=== PATIENT | male | born 1995 | race Caucasian/White ===

== ENCOUNTER 2021-01-04 12:23 | Emergency (ER) | payer MEDICAID ==
--- NOTE | 2021-01-04 12:55 | ED Physician Documentation ---
History of Present Illness - Stated complaint Stated Complaint: SEIZURES, MEDS - Chief complaint Chief Complaint: General - Additonal information Additional information: 25-year-old male presents to the emergency department requesting help with alcohol withdrawal. He has a very heavy history of alcoholism and has been trying to taper back the amount of alcohol he drinks. Historically he has drank more than 1/5 of alcohol daily though the last few weeks he has been tapering back. He began to have shakes and withdrawals this morning and was concerned that he may have a seizure therefore he did drink beer. His mother is in attendance with him and they have been trying to get seizure medications to help him with withdrawal but [place]. [place] for pancreatitis and previously lived in [place]. He reports that he is a new resident of [facility]. Patient does state to this provider that he is not interested in alcohol detox at this time. Review of Systems Constitutional: reports: Myalgias. denies: Fever, Chills Eyes: reports: Reviewed and negative Ears: reports: Reviewed and negative Nose: reports: Reviewed and negative Throat: reports: Reviewed and negative Cardiac: reports: Reviewed and negative Respiratory: reports: Reviewed and negative GI: reports: Abdominal Pain, Nausea, Vomiting. denies: Constipation, Diarrhea, Hematemesis : reports: Reviewed and negative Skin: denies: Rash, Lesions Musculoskeletal: reports: Reviewed and negative Neurologic: reports: Seizure, Other (Tremor and withdrawal) Psychiatric: reports: Anxiety, Other (Alcohol abuse.) PD PAST MEDICAL HISTORY - Present Medications Home Medications: Ambulatory Orders Medication Instructions Recorded Confirmed chlordiazePOXIDE [Librium] 25 mg PO Q6H #20 01/04/21 - Allergies Allergies/Adverse Reactions: Allergies Allergy/AdvReac Type Severity Reaction Status Date / Time No Known Drug Allergies Allergy Verified 01/04/21 12:31 PD ED PE EXPANDED - General General: Alert, No acute distress, Other (smells heavily of etoh) - Neck Neck: Supple w/out meningeal sx, No tenderness - Cardiac Cardiac: Tachy, Radial strong equal, Pedal strong equal, Cap refill < 2 sec. No: Murmur Present - Respiratory Respiratory: Clear to ausultation alana. No: Distress, Labored - Abdomen Abdomen: Normal Bowel sounds. No: Tender to palpation - Extremities Extremities: Normal. No: Deformity - Neuro Neuro: Alert and Oriented X 3, CNII-XII intact - GCS Eye Opening: Spontaneous Motor: Obeys Commands Verbal: Oriented Total: 15 - Psych Psych: Intoxicated / AOB, Anxious Results - Vitals Vitals: Vital Signs - 24 hr 01/04/21 12:31 Temperature 36.9 C Heart Rate 99 Respiratory 18 Rate Blood Pressure 173/103 H O2 Saturation 96 Oxygen O2 Source Room air - Labs Labs: Laboratory Tests 01/04/21 01/04/21 01/04/21 13:00 13:00 13:00 WBC 4.6 L RBC 5.09 Hgb 16.7 Hct 48.3 MCV 94.9 H MCH 32.8 H MCHC 34.6 RDW 13.2 Plt Count 149 MPV 9.4 Neut # (Auto) 2.4 Lymph # (Auto) 1.3 L [place] # (Auto) 0.8 Eos # (Auto) 0.0 Baso # (Auto) 0.0 Absolute Nucleated RBC 0.00 Nucleated RBC % 0.0 Sodium 139 Potassium 3.4 L Chloride 93 L Carbon Dioxide 30 Anion Gap 16.0 H BUN 9 Creatinine 0.8 Estimated GFR (MDRD) 117 Glucose 94 Calcium 9.3 Total Bilirubin 1.4 H AST 180 H ALT 79 H Alkaline Phosphatase 71 Total Protein 9.3 H Albumin 5.4 Globulin 3.9 Albumin/Globulin Ratio 1.4 Lipase 58 H TSH 2.26 Urine Color Urine Clarity Urine pH Ur Specific [place] Urine Protein Urine Glucose (UA) Urine Ketones Urine Occult Blood Urine Nitrite Urine Bilirubin Urine Urobilinogen Ur Leukocyte Esterase Urine RBC Urine WBC Ur Squamous Epith Cells Urine Bacteria Urine Mucus Ur Microscopic Review Urine Culture Comments Salicylates < 6.0 Urine Opiates Screen Ur Oxycodone Screen Urine Methadone Screen Ur Propoxyphene Screen Acetaminophen < 10 L Ur Barbiturates Screen Ur Tricyclics Screen Ur Phencyclidine Scrn Ur Amphetamine Screen U Methamphetamines Scrn U Benzodiazepines Scrn Urine Cocaine Screen U Cannabinoids Screen Ethyl Alcohol 339.7 01/04/21 13:33 WBC RBC Hgb Hct MCV MCH MCHC RDW Plt Count MPV Neut # (Auto) Lymph # (Auto) [place] # (Auto) Eos # (Auto) Baso # (Auto) Absolute Nucleated RBC Nucleated RBC % Sodium Potassium Chloride Carbon Dioxide Anion Gap BUN Creatinine Estimated GFR (MDRD) Glucose Calcium Total Bilirubin AST ALT Alkaline Phosphatase Total Protein Albumin Globulin Albumin/Globulin Ratio Lipase TSH Urine Color YELLOW Urine Clarity CLEAR Urine pH 7.0 Ur Specific [place] 1.010 Urine Protein 100 H Urine Glucose (UA) NEGATIVE Urine Ketones NEGATIVE Urine Occult Blood TRACE-INTA Urine Nitrite NEGATIVE Urine Bilirubin NEGATIVE Urine Urobilinogen 0.2 (NORMAL) Ur Leukocyte Esterase NEGATIVE Urine RBC 0-5 Urine WBC 0-3 Ur Squamous Epith Cells RARE Squamous Urine Bacteria None Seen Urine Mucus Few Strands Ur Microscopic Review INDICATED Urine Culture Comments NOT INDICATED Salicylates Urine Opiates Screen NEGATIVE Ur Oxycodone Screen NEGATIVE Urine Methadone Screen NEGATIVE Ur Propoxyphene Screen NEGATIVE Acetaminophen Ur Barbiturates Screen NEGATIVE Ur Tricyclics Screen NEGATIVE Ur Phencyclidine Scrn NEGATIVE Ur Amphetamine Screen NEGATIVE U Methamphetamines Scrn NEGATIVE U Benzodiazepines Scrn POSITIVE H Urine Cocaine Screen NEGATIVE U Cannabinoids Screen POSITIVE H Ethyl Alcohol PD MEDICAL DECISION MAKING - ED course Complexity details: reviewed results, re-evaluated patient, d/w patient ED course: 25-year-old male presents the emergency department requesting medication to help prevent alcohol withdrawal and seizures. Does have a long has history of alcoholism often drinking up to 700 mL of liquor daily. Over the last few weeks he has begun to taper his use back and this morning began having tremors and withdrawal symptoms. He was afraid that he may have a seizure therefore he did drink a beer. He comes to this emergency department requesting Librium. He does smell heavily of alcohol and does have a positive blood alcohol of 336 here on arrival. He does report that about 1 month ago he was briefly hospitalized at the [facility] for acute pancreatitis. Screening labs do show transaminitis consistent with alcohol abuse. Lipase is not clinically elevated. No abdominal pain was elicited. This gentleman was seen by social work and he declines to go to a detox facility. I discussed this case at length with his grandmother. I will write a short prescription for Librium which is to be in her possession. Appropriate use of this medication was discussed. Patient is to avoid use of alcohol and Librium at the same time and he is free to return to the emergency department at any time should he wish to enter a detox facility. Departure - Departure Disposition: 01 Home, Self Care Clinical Impression: Alcohol abuse with withdrawal Condition: Stable Record reviewed to determine appropriate education?: Yes Instructions: ED Seizure Alcohol Withdrawal Prescriptions: chlordiazePOXIDE [Librium] 25 mg PO Q6H #20 Comments: Sam you are seen in the emergency department today for alcohol with drawl. You were offered the opportunity to go to inpatient detox but you declined. It is very important that you do not consume alcohol while taking Librium. Therefore I would like the Librium to be in possession of your mother or grandmother at all times. You may take it if you have not had a drink for 12 or more hours and you begin to have shakes or withdrawal symptoms. In the long-term most successful alcohol cessation stops with the help of therapy, Alcoholics Anonymous as well as detox. If at any point you feel that you would like to enter a detox facility you may return to the emergency department. I do wish you luck in your journey.
[2021-01-04 13:06] LABS: BASOPHILS % (AUTO) 0.9 %; EOSINOPHILS % (AUTO) 0.2 %; HCT - HEMATOCRIT 48.3 % (42.0-52.0); HGB - HEMOGLOBIN 16.7 g/dL (14.0-18.0); LYMPHOCYTES # (AUTO) 1.3 10^3/uL (1.5-3.5); LYMPHOCYTES % (AUTO) 28.7 %; MEAN CORPUSCULAR HEMOGLOBIN 32.8 pg (27.0-31.0); MEAN CORPUSCULAR HGB CONC 34.6 g/dL (32.0-36.0); MEAN CORPUSCULAR VOLUME 94.9 fL (80.0-94.0); MEAN PLATELET VOLUME 9.4 fL (7.4-11.4); MONOCYTES # (AUTO) 0.8 10^3/uL (0.0-1.0); NEUTROPHILS # (AUTO) 2.4 10^3/uL (1.5-6.6); PLT - PLATELET COUNT 149 10^3/uL (130-450); RED BLOOD COUNT 5.09 10^6/uL (4.70-6.10); RED CELL DISTRIBUTION WIDTH 13.2 % (12.0-15.0); WHITE BLOOD COUNT 4.6 x10^3/uL (4.8-10.8)
[2021-01-04 13:24] LABS: ACETAMINOPHEN < 10 ug/mL (10-30); ALBUMIN 5.4 g/dL (3.2-5.5); ALBUMIN/GLOBULIN RATIO 1.4 (1.0-2.2); ALKALINE PHOSPHATASE 71 IU/L (42-121); ALT ALANINE AMINOTRANSFERASE 79 IU/L (10-60); AST ASPARTATE AMINOTRANSFERASE 180 IU/L (10-42); BILIRUBIN,TOTAL 1.4 mg/dL (0.2-1.0); BUN - BLOOD UREA NITROGEN 9 mg/dL (6-20); CALCIUM 9.3 mg/dL (8.5-10.3); CARBON DIOXIDE - CO2 30 mmol/L (21-32); CHLORIDE 93 mmol/L (101-111); CREATININE 0.8 mg/dL (0.6-1.2); ETOH - ETHANOL 339.7 mg/dL; GFR - MDRD 117 (>89); GLUCOSE 94 mg/dL (70-100); LIPASE 58 U/L (22-51); POTASSIUM 3.4 mmol/L (3.5-5.0); SALICYLATE < 6.0 mg/dL; SODIUM 139 mmol/L (135-145); TOTAL PROTEIN 9.3 g/dL (6.7-8.2)
[2021-01-04 13:37] LABS: MUDS CUTOFF CONCENTRATIONS CUTOFF CONC BELOW:
[2021-01-04 13:42] LABS: BILIRUBIN,URINE NEGATIVE (NEGATIVE); GLUCOSE, URINE (UA) NEGATIVE (NEGATIVE); KETONES,URINE (UA) NEGATIVE (NEGATIVE); LEUKOCYTE ESTERASE, URINE NEGATIVE (NEGATIVE); NITRITE,URINE NEGATIVE (NEGATIVE); OCCULT BLOOD,URINE TRACE-INTA (NEGATIVE); PROTEIN,URINE 100 mg/dL (NEGATIVE); UROBILINOGEN,URINE 0.2 (NORMAL) E.U./dL (NORMAL)
[2021-01-04 13:43] LABS: CLARITY,URINE CLEAR (CLEAR)
[2021-01-04 13:52] LABS: AMPHETAMINE SCREEN,URINE NEGATIVE (NEGATIVE); BARBITURATE SCREEN,UR NEGATIVE (NEGATIVE); BENZODIAZEPINES SCREEN, URINE POSITIVE (NEGATIVE); COCAINE SCREEN URINE NEGATIVE (NEGATIVE); METHADONE SCREEN, URINE NEGATIVE (NEGATIVE); METHAMPHETAMINES SCREEN, URINE NEGATIVE (NEGATIVE); OPIATE SCREEN, URINE NEGATIVE (NEGATIVE); OXYCODONE SCREEN, URINE NEGATIVE (NEGATIVE); PROPOXYPHENE SCREEN, URINE NEGATIVE (NEGATIVE); THC CANNABINOID SCREEN, URINE POSITIVE (NEGATIVE); TRICYCLIC ANTIDEPRESSANT,URINE NEGATIVE (NEGATIVE)
[2021-01-04 13:53] LABS: BACTERIA,URINE None Seen /HPF (None Seen); MUCUS,URINE Few Strands; RBC,URINE 0-5 /HPF (0-5); SQUAMOUS EPITHELIAL CELL,UR RARE Squamous (<= Few); WBC,URINE 0-3 /HPF (0-3)
[2021-01-04 15:00] VITALS: BP 174/98
== END 2021-01-04 15:00 | disposition home or self-care (01) ==
LOC: ED 12:23
DX: F10.239 Alcohol dependence with withdrawal, unspecified (principal); Y90.8 Blood alcohol level of 240 mg/100 ml or more
CPT/HCPCS: 36415; 80053; 80306; 80307; 80320; 80329; 81001; 81003; 83690; 84443; 85025; 87086; 99283; 99284

== ENCOUNTER 2021-06-16 19:13 | Outpatient (CLI) | payer MEDICAID | END 2021-06-16 19:14 | disposition critical access hospital (66) | LOC: EMS 19:13 | DX: R56.9 Unspecified convulsions (principal) | CPT/HCPCS: A0425; A0427; A0999 ==

== ENCOUNTER 2021-06-16 19:23 | Emergency (ER) | payer MEDICAID ==
[2021-06-16] MEDS ORDERED: THIAMINE 100 MG TABLET PO STA (19:45)
[2021-06-16] MEDS ORDERED: chlordiazePOXIDE 25 MG CAPSULE PO STA ×2 (19:45→21:42)
--- NOTE | 2021-06-16 19:58 | ED Physician Documentation ---
History of Present Illness - Stated complaint Stated Complaint: SZ - Chief complaint Chief Complaint: Neuro - History obtained from History obtained from: Patient, EMS - Additonal information Additional information: 25yM with pmh chronic etoh abuse with prior hospitalization for pancreatitis, as well as 3 etoh withdrawal seizures in the past, otherwise without medical problems, p/w seizure witnessed by girlfriend Rajiv occurring just WATCH [employer], lasting a couple minutes. patient bit tongue. no urinary/fecal incontinence. patient reports confusion after and now is \AOX3. fingerstick 89. reports he has been trying to taper down on his alcohol intake this week. 9 beers yesterday, 4 today. last etoh reported 3-4 hours ago. denies pain anywhere. Review of Systems Ten Systems: 10 systems reviewed and negative Constitutional: denies: Fever, Chills Eyes: denies: Loss of vision GI: denies: Abdominal Pain, Nausea Neurologic: reports: Seizure. denies: Focal weakness, Numbness PD PAST MEDICAL HISTORY - Past Surgical History Past Surgical History: No - Present Medications Home Medications: Ambulatory Orders Medication Instructions Recorded Confirmed chlordiazePOXIDE [Librium] 25 mg PO Q6H #20 01/04/21 chlordiazePOXIDE [Librium] 25 mg PO Q6H PRN #20 tab 06/16/21 - Allergies Allergies/Adverse Reactions: Allergies Allergy/AdvReac Type Severity Reaction Status Date / Time No Known Drug Allergies Allergy Verified 06/16/21 19:34 - Social History Does the pt smoke?: No Smoking Status: Former smoker Does the pt drink ETOH?: Yes Does the pt have substance abuse?: Yes - Immunizations Immunizations are current?: No - POLST Patient has POLST: No PD ED PE NORMAL - Vitals Vital signs reviewed: Yes - General General: Alert and oriented X 3, No acute distress, Well developed/nourished - HEENT HEENT: Atraumatic, PERRL, EOMI, Moist mucous membranes, Other (R tongue with abrasion/superficial lac) - Neck Neck: Supple, no meningeal sign - Cardiac Cardiac: RRR - Respiratory Respiratory: No respiratory distress, Clear bilaterally - Abdomen Abdomen: Non tender, Non distended - Derm Derm: Normal color, Warm and dry - Extremities Extremities: No deformity - Neuro Neuro: Alert and oriented X 3, grinder operator 2-12 intact, No motor deficit, No sensory deficit, Normal speech, Other (normal cerebellar testing) - Psych Psych: Normal mood, Normal affect Results - Vitals Vitals: Vital Signs - 24 hr 06/16/21 06/16/21 19:25 19:39 Temperature 36.6 C Heart Rate 108 H 98 Respiratory 13 14 Rate Blood Pressure 156/95 H 154/100 H O2 Saturation 97 98 Oxygen O2 Source Room air - Labs Labs: Laboratory Tests 06/16/21 06/16/21 06/16/21 20:21 20:21 20:21 WBC 7.6 RBC 4.47 L Hgb 15.0 Hct 44.1 MCV 98.7 H MCH 33.6 H MCHC 34.0 RDW 12.4 Plt Count 166 MPV 10.4 Neut # (Auto) 5.8 Lymph # (Auto) 0.5 L [place] # (Auto) 1.2 H Eos # (Auto) 0.1 Baso # (Auto) 0.0 Absolute Nucleated RBC 0.00 Band Neuts % (Manual) Not Reportable Abnorm Lymph % (Manual) Not Reportable Nucleated RBC % 0.0 Neutrophils # (Manual) Not Reportable Lymphocytes # (Manual) Not Reportable Monocytes # (Manual) Not Reportable Eosinophils # (Manual) Not Reportable Basophils # (Manual) Not Reportable Differential Comment MANUAL=AUTO DIFF Manual Slide Review Indicated Platelet Estimate NORMAL (130-450,000) Platelet Morphology NORMAL APPEARANCE RBC Morph Micro Appear NORMAL APPEARANCE VBG pH 7.394 VBG pCO2 43.5 VBG pO2 24.1 L VBG HCO3 26.0 VBG Total CO2 27.3 VBG O2 Saturation 43.4 L VBG Base Excess 0.8 Sodium 134 L Potassium 3.9 Chloride 95 L Carbon Dioxide 27 Anion Gap 12.0 BUN 7 Creatinine 0.9 Estimated GFR (MDRD) 102 Glucose 106 H Calcium 9.9 Total Bilirubin 1.9 H AST 82 H ALT 49 Alkaline Phosphatase 63 Total Creatine Kinase 340 H Total Protein 8.0 Albumin 4.7 Globulin 3.3 Albumin/Globulin Ratio 1.4 Lipase 68 H Urine Color Urine Clarity Urine pH Ur Specific [place] Urine Protein Urine Glucose (UA) Urine Ketones Urine Occult Blood Urine Nitrite Urine Bilirubin Urine Urobilinogen Ur Leukocyte Esterase Urine RBC Urine WBC Ur Squamous Epith Cells Urine Bacteria Urine Mucus Ur Microscopic Review Urine Culture Comments Urine Opiates Screen Ur Oxycodone Screen Urine Methadone Screen Ur Propoxyphene Screen Ur Barbiturates Screen Ur Tricyclics Screen Ur Phencyclidine Scrn Ur Amphetamine Screen U Methamphetamines Scrn U Benzodiazepines Scrn Urine Cocaine Screen U Cannabinoids Screen Ethyl Alcohol < 5.0 06/16/21 20:29 WBC RBC Hgb Hct MCV MCH MCHC RDW Plt Count MPV Neut # (Auto) Lymph # (Auto) [place] # (Auto) Eos # (Auto) Baso # (Auto) Absolute Nucleated RBC Band Neuts % (Manual) Abnorm Lymph % (Manual) Nucleated RBC % Neutrophils # (Manual) Lymphocytes # (Manual) Monocytes # (Manual) Eosinophils # (Manual) Basophils # (Manual) Differential Comment Manual Slide Review Platelet Estimate Platelet Morphology RBC Morph Micro Appear VBG pH VBG pCO2 VBG pO2 VBG HCO3 VBG Total CO2 VBG O2 Saturation VBG Base Excess Sodium Potassium Chloride Carbon Dioxide Anion Gap BUN Creatinine Estimated GFR (MDRD) Glucose Calcium Total Bilirubin AST ALT Alkaline Phosphatase Total Creatine Kinase Total Protein Albumin Globulin Albumin/Globulin Ratio Lipase Urine Color YELLOW Urine Clarity CLEAR Urine pH 6.0 Ur Specific [place] >=1.030 H Urine Protein 100 H Urine Glucose (UA) NEGATIVE Urine Ketones 15 H Urine Occult Blood MODERATE H Urine Nitrite NEGATIVE Urine Bilirubin NEGATIVE Urine Urobilinogen 0.2 (NORMAL) Ur Leukocyte Esterase NEGATIVE Urine RBC None Seen Urine WBC 0-3 Ur Squamous Epith Cells NONE SEEN Urine Bacteria None Seen Urine Mucus Few Strands Ur Microscopic Review INDICATED Urine Culture Comments NOT INDICATED Urine Opiates Screen NEGATIVE Ur Oxycodone Screen NEGATIVE Urine Methadone Screen NEGATIVE Ur Propoxyphene Screen NEGATIVE Ur Barbiturates Screen NEGATIVE Ur Tricyclics Screen NEGATIVE Ur Phencyclidine Scrn NEGATIVE Ur Amphetamine Screen NEGATIVE U Methamphetamines Scrn NEGATIVE U Benzodiazepines Scrn NEGATIVE Urine Cocaine Screen NEGATIVE U Cannabinoids Screen NEGATIVE Ethyl Alcohol PD MEDICAL DECISION MAKING - ED course ED course: 25yM p/w etoh w/d seizure. will obtain labs, monitor. AOX3 with normal neuro exam. Labs noncontributory. patient still mentating well. d/w Dr. Naranjo for possible observation. He recommends discharge with librium for withdrawal. d/w patient who is agreeable. offered to observe overnight and have SW see in AM but patient is not interested at this time. strict return precautions discussed. Departure - Departure Disposition: 01 Home, Self Care Clinical Impression: Alcohol withdrawal seizure Condition: Stable Instructions: ED Seizure Alcohol Withdrawal Prescriptions: chlordiazePOXIDE [Librium] 25 mg PO Q6H PRN #20 tab PRN Reason: Alcohol Withdrawal Comments: You are seen in the emergency department for alcohol withdrawal seizures. Make sure that you take your Librium as prescribed and follow-up immediately with the emergency department if you decide that you are interested in medical detox. We have social workers available from 9am-5pm most days of the week.
[2021-06-16 20:33] LABS: MUDS CUTOFF CONCENTRATIONS CUTOFF CONC BELOW:
[2021-06-16 20:36] LABS: BASOPHILS % (AUTO) 0.5 %; EOSINOPHILS # (AUTO) 0.1 10^3/uL (0.0-0.7); EOSINOPHILS % (AUTO) 1.2 %; HCT - HEMATOCRIT 44.1 % (42.0-52.0); LYMPHOCYTES # (AUTO) 0.5 10^3/uL (1.5-3.5); LYMPHOCYTES % (AUTO) 5.9 %; MEAN CORPUSCULAR HEMOGLOBIN 33.6 pg (27.0-31.0); MEAN CORPUSCULAR VOLUME 98.7 fL (80.0-94.0); MEAN PLATELET VOLUME 10.4 fL (7.4-11.4); MONOCYTES # (AUTO) 1.2 10^3/uL (0.0-1.0); MONOCYTES % (AUTO) 15.8 %; NEUTROPHILS # (AUTO) 5.8 10^3/uL (1.5-6.6); NEUTROPHILS % (AUTO) 76.3 %; PLT - PLATELET COUNT 166 10^3/uL (130-450); RED BLOOD COUNT 4.47 10^6/uL (4.70-6.10); RED CELL DISTRIBUTION WIDTH 12.4 % (12.0-15.0); VBG BASE EXCESS 0.8 mmol/L (-2 - +2); VBG OXYGEN SATURATION 43.4 % (60-80); VBG PCO2 43.5 mmHg (41-51); VBG PH 7.394 (7.31-7.41); VBG PO2 24.1 mmHg (25-47); VBG TOTAL CO2 27.3 mmol/L (24-29); WHITE BLOOD COUNT 7.6 x10^3/uL (4.8-10.8)
[2021-06-16 20:37] LABS: SLIDE REVIEW? Indicated
[2021-06-16 20:41] LABS: ALBUMIN 4.7 g/dL (3.2-5.5); ALBUMIN/GLOBULIN RATIO 1.4 (1.0-2.2); ALKALINE PHOSPHATASE 63 IU/L (42-121); ALT ALANINE AMINOTRANSFERASE 49 IU/L (10-60); AST ASPARTATE AMINOTRANSFERASE 82 IU/L (10-42); BILIRUBIN,TOTAL 1.9 mg/dL (0.2-1.0); BUN - BLOOD UREA NITROGEN 7 mg/dL (6-20); CALCIUM 9.9 mg/dL (8.5-10.3); CARBON DIOXIDE - CO2 27 mmol/L (21-32); CHLORIDE 95 mmol/L (101-111); CK- CREATINE KINASE 340 IU/L (22-269); CREATININE 0.9 mg/dL (0.6-1.2); ETOH - ETHANOL < 5.0 mg/dL; GFR - MDRD 102 (>89); GLUCOSE 106 mg/dL (70-100); LIPASE 68 U/L (22-51); POTASSIUM 3.9 mmol/L (3.5-5.0); SODIUM 134 mmol/L (135-145)
[2021-06-16 20:42] LABS: BILIRUBIN,URINE NEGATIVE (NEGATIVE); GLUCOSE, URINE (UA) NEGATIVE (NEGATIVE); KETONES,URINE (UA) 15 mg/dL (NEGATIVE); LEUKOCYTE ESTERASE, URINE NEGATIVE (NEGATIVE); NITRITE,URINE NEGATIVE (NEGATIVE); OCCULT BLOOD,URINE MODERATE (NEGATIVE); PROTEIN,URINE 100 mg/dL (NEGATIVE); UROBILINOGEN,URINE 0.2 (NORMAL) E.U./dL (NORMAL)
[2021-06-16 20:46] LABS: CLARITY,URINE CLEAR (CLEAR)
[2021-06-16 20:53] LABS: AMPHETAMINE SCREEN,URINE NEGATIVE (NEGATIVE); BARBITURATE SCREEN,UR NEGATIVE (NEGATIVE); BENZODIAZEPINES SCREEN, URINE NEGATIVE (NEGATIVE); COCAINE SCREEN URINE NEGATIVE (NEGATIVE); METHADONE SCREEN, URINE NEGATIVE (NEGATIVE); METHAMPHETAMINES SCREEN, URINE NEGATIVE (NEGATIVE); OPIATE SCREEN, URINE NEGATIVE (NEGATIVE); OXYCODONE SCREEN, URINE NEGATIVE (NEGATIVE); PROPOXYPHENE SCREEN, URINE NEGATIVE (NEGATIVE); THC CANNABINOID SCREEN, URINE NEGATIVE (NEGATIVE); TRICYCLIC ANTIDEPRESSANT,URINE NEGATIVE (NEGATIVE)
[2021-06-16 21:01] LABS: BACTERIA,URINE None Seen /HPF (None Seen); MUCUS,URINE Few Strands; RBC,URINE None Seen /HPF (0-5); SQUAMOUS EPITHELIAL CELL,UR NONE SEEN (<= Few); WBC,URINE 0-3 /HPF (0-3)
[2021-06-16 21:20] LABS: DIFFERENTIAL COMMENT MANUAL=AUTO DIFF; PLATELET ESTIMATE, MANUAL NORMAL (130-450,000) (NORMAL); PLATELET MORPHOLOGY NORMAL APPEARANCE (NORMAL); RBC MORPHOLOGY (MULTIPLE) NORMAL APPEARANCE (NORMAL)
[2021-06-16] MEDS ORDERED: chlordiazePOXIDE 25 MG CAPSULE PO PRN (21:33)
[2021-06-16 21:56] VITALS: BP 136/77
== END 2021-06-16 22:05 | disposition home or self-care (01) ==
LOC: EDUNIT# → ED 19:23
DX: F10.139 Alcohol abuse with withdrawal, unspecified (principal); G40.89 Other seizures; S00.512A Abrasion of oral cavity, initial encounter; X58.XXXA Exposure to other specified factors, initial encounter; Z87.891 Personal history of nicotine dependence
CPT/HCPCS: 36415; 80053; 80306; 80320; 81001; 82550; 82803; 83690; 85025; 99283; 99284; A9270; 81003; 87086

== ENCOUNTER 2021-08-08 18:22 | Inpatient (IN) | payer MEDICAID ==
[2021-08-08 18:43] LABS: BASOPHILS # (AUTO) 0.1 10^3/uL (0.0-0.1); BASOPHILS % (AUTO) 0.4 %; EOSINOPHILS % (AUTO) 0.1 %; HCT - HEMATOCRIT 47.6 % (42.0-52.0); HGB - HEMOGLOBIN 17.2 g/dL (14.0-18.0); LYMPHOCYTES # (AUTO) 0.8 10^3/uL (1.5-3.5); LYMPHOCYTES % (AUTO) 5.3 %; MEAN CORPUSCULAR HEMOGLOBIN 33.7 pg (27.0-31.0); MEAN CORPUSCULAR HGB CONC 36.1 g/dL (32.0-36.0); MEAN CORPUSCULAR VOLUME 93.3 fL (80.0-94.0); MEAN PLATELET VOLUME 9.9 fL (7.4-11.4); MONOCYTES # (AUTO) 0.9 10^3/uL (0.0-1.0); NEUTROPHILS # (AUTO) 13.2 10^3/uL (1.5-6.6); NEUTROPHILS % (AUTO) 87.8 %; PLT - PLATELET COUNT 167 10^3/uL (130-450); RED CELL DISTRIBUTION WIDTH 12.7 % (12.0-15.0)
[2021-08-08 19:04] LABS: GLUCOSE, URINE (UA) NEGATIVE (NEGATIVE); KETONES,URINE (UA) NEGATIVE (NEGATIVE); LEUKOCYTE ESTERASE, URINE NEGATIVE (NEGATIVE); NITRITE,URINE NEGATIVE (NEGATIVE); OCCULT BLOOD,URINE NEGATIVE (NEGATIVE); PH,URINE 5.5 PH (5.0-7.5); PROTEIN,URINE TRACE mg/dL (NEGATIVE); UROBILINOGEN,URINE 1 (NORMAL) E.U./dL (NORMAL)
[2021-08-08 19:06] LABS: BILIRUBIN,URINE MODERATE (NEGATIVE); CLARITY,URINE CLEAR (CLEAR); ICTOTEST,URINE POSITIVE
[2021-08-08] MEDS ORDERED: FAMOTIDINE 20 MG TABLET PO STA (19:06)
[2021-08-08] MEDS ORDERED: SUCRALFATE 1 GM/10 ML UDC PO STA (19:06)
[2021-08-08] MEDS ORDERED: MAG HYDROX/AL HYDROX/SIMETH 30 ML UDC PO STA (19:06)
[2021-08-08 19:13] LABS: ALBUMIN 3.7 g/dL (3.2-5.5); ALBUMIN/GLOBULIN RATIO 1.2 (1.0-2.2); BILIRUBIN,TOTAL 2.5 mg/dL (0.2-1.0); CALCIUM 8.3 mg/dL (8.5-10.3); CREATININE 0.9 mg/dL (0.6-1.2); ETOH - ETHANOL 138.7 mg/dL; TOTAL PROTEIN 6.8 g/dL (6.7-8.2)
--- NOTE | 2021-08-08 19:19 | ED Physician Documentation ---
PD HPI ABD PAIN - Stated complaint Stated Complaint: ABD PX - Chief complaint Chief Complaint: Abd Pain - History obtained from History obtained from: Patient - History of Present Illness Quality: Aching Location: Epigastric, LUQ Associated symptoms: No: Fever, Nausea, Vomiting, Hematemesis, Diarrhea, Constipation, Melena, Hematochezia, Dysuria Recently seen: Not recently seen - Additional information Additional information: Patient is a 26-year-old male who presents to the emergency department abdominal pain. Ongoing for the past several days. Epigastric and left upper quadrant. Similar to prior pancreatitis. Has a history of chronic alcoholism. He states that he used to drink 1-2 fifth bottles per day. He states that he now drinks several beers and a few shots. No vomiting. Review of Systems Ten Systems: 10 systems reviewed and negative Constitutional: denies: Fever, Chills Cardiac: denies: Chest pain / pressure, Palpitations Respiratory: denies: Cough GI: reports: Abdominal Pain. denies: Nausea, Vomiting, Diarrhea, Hematemesis, Bloody / black stool Skin: denies: Rash Musculoskeletal: denies: Neck pain, Back pain Neurologic: denies: Headache PD PAST MEDICAL HISTORY - Past Medical History Past Medical History: Yes Cardiovascular: High cholesterol GI: Pancreatitis - Past Surgical History Past Surgical History: No General: Splenectomy - Present Medications Home Medications: Ambulatory Orders Medication Instructions Recorded Confirmed chlordiazePOXIDE [Librium] 25 mg PO Q6H #20 01/04/21 chlordiazePOXIDE [Librium] 25 mg PO Q6H PRN #20 tab 06/16/21 - Allergies Allergies/Adverse Reactions: Allergies Allergy/AdvReac Type Severity Reaction Status Date / Time No Known Drug Allergies Allergy Verified 08/08/21 18:28 - Social History Does the pt smoke?: No Smoking Status: Never smoker Does the pt drink ETOH?: Yes Does the pt have substance abuse?: Yes - Immunizations Immunizations are current?: No - POLST Patient has POLST: No PD ED PE NORMAL - Vitals Vital signs reviewed: Yes - General General: Alert and oriented X 3, No acute distress, Well developed/nourished - HEENT HEENT: Moist mucous membranes - Neck Neck: Supple, no meningeal sign - Cardiac Cardiac: RRR, Strong equal pulses - Respiratory Respiratory: No respiratory distress, Clear bilaterally - Abdomen Abdomen: Soft, Non distended, Other (Tender palpation epigastric. No peritoneal signs) - Derm Derm: Warm and dry - Extremities Extremities: No deformity - Neuro Neuro: Alert and oriented X 3 - Psych Psych: Normal mood, Normal affect Results - Vitals Vitals: Vital Signs - 24 hr 08/08/21 08/08/21 18:28 20:33 Temperature 36.5 C Heart Rate 90 74 Respiratory 16 16 Rate Blood Pressure 135/79 H 137/84 H O2 Saturation 98 97 Oxygen O2 Source Room air - Labs Labs: Laboratory Tests 08/08/21 08/08/21 08/08/21 18:36 18:36 18:36 WBC 15.0 H RBC 5.10 Hgb 17.2 Hct 47.6 MCV 93.3 MCH 33.7 H MCHC 36.1 H RDW 12.7 Plt Count 167 MPV 9.9 Neut # (Auto) 13.2 H Lymph # (Auto) 0.8 L [place] # (Auto) 0.9 Eos # (Auto) 0.0 Baso # (Auto) 0.1 Absolute Nucleated RBC 0.00 Nucleated RBC % 0.0 Sodium 129 L Potassium 4.0 Chloride 91 L Carbon Dioxide 22 Anion Gap 16.0 H BUN 14 Creatinine 0.9 Estimated GFR (MDRD) 101 Glucose 107 H Calcium 8.3 L Total Bilirubin 2.5 H AST 202 H ALT 153 H Alkaline Phosphatase 154 H Total Protein 6.8 Albumin 3.7 Globulin 3.1 Albumin/Globulin Ratio 1.2 Triglycerides > 2000 H Cholesterol 591 H LDL Cholesterol Direct INDEPENDENT TRADER LDL Cholesterol, Calc Not Reportable VLDL Cholesterol Not Reportable HDL Cholesterol INDEPENDENT TRADER LDL/HDL Ratio Not Reportable dLDL/HDL Ratio 0.8 Cholesterol/HDL Ratio 45.5 Lipase 792 H Urine Color Urine Clarity Urine pH Ur Specific [place] Urine Protein Urine Glucose (UA) Urine Ketones Urine Occult Blood Urine Nitrite Urine Bilirubin Urine Urobilinogen Ur Leukocyte Esterase Ur Microscopic Review Urine Culture Comments Ethyl Alcohol 138.7 08/08/21 18:47 WBC RBC Hgb Hct MCV MCH MCHC RDW Plt Count MPV Neut # (Auto) Lymph # (Auto) [place] # (Auto) Eos # (Auto) Baso # (Auto) Absolute Nucleated RBC Nucleated RBC % Sodium Potassium Chloride Carbon Dioxide Anion Gap BUN Creatinine Estimated GFR (MDRD) Glucose Calcium Total Bilirubin AST ALT Alkaline Phosphatase Total Protein Albumin Globulin Albumin/Globulin Ratio Triglycerides Cholesterol LDL Cholesterol Direct LDL Cholesterol, Calc VLDL Cholesterol HDL Cholesterol LDL/HDL Ratio dLDL/HDL Ratio Cholesterol/HDL Ratio Lipase Urine Color DARK YELLOW Urine Clarity CLEAR Urine pH 5.5 Ur Specific [place] >=1.030 H Urine Protein TRACE Urine Glucose (UA) NEGATIVE Urine Ketones NEGATIVE Urine Occult Blood NEGATIVE Urine Nitrite NEGATIVE Urine Bilirubin MODERATE H Urine Urobilinogen 1 (NORMAL) Ur Leukocyte Esterase NEGATIVE Ur Microscopic Review NOT INDICATED Urine Culture Comments NOT INDICATED Ethyl Alcohol PD MEDICAL DECISION MAKING - ED course Complexity details: reviewed results, re-evaluated patient, considered differential, d/w patient ED course: 26-year-old male with alcoholic pancreatitis. Also could be secondary to hypertriglyceridemia. Coags were not able to be obtained secondary to the high lipid content of his blood. His triglycerides are greater than 2000. Pain well controlled. Given IV fluids and a banana bag. He is not tolerating p.o. well. We will place in observation for further care. Discussed the case with Dr. Naranjo, hospitalist accepts This document was made in part using voice recognition software. While efforts are made to proofread this document, sound alike and grammatical errors may occur. Departure - Departure Disposition: ED Place in Observation Clinical Impression: Alcoholism, Hypertriglyceridemia Pancreatitis Qualifiers: Chronicity: acute Pancreatitis type: alcohol induced Acute pancreatitis complication: unspecified Qualified Code(s): K85.20 - Alcohol induced acute pancreatitis without necrosis or infection Hyperlipidemia Qualifiers: Hyperlipidemia type: unspecified Qualified Code(s): E78.5 - Hyperlipidemia, unspecified Condition: Stable
[2021-08-08] MEDS ORDERED: SODIUM CHLORIDE 0.9% 1,000 ML IV STA ×2 (19:46)
[2021-08-08] MEDS ORDERED: THIAMINE INJ 100 MG, MAGNESIUM SULFATE 2 GM, MULTIVITAMIN 10 ML, FOLIC ACID INJ 1 MG in... IV ONE ×5 (19:46)
[2021-08-08] MEDS ORDERED: MORPHINE 2 MG/ML CARPUJECT IVP STA (19:46)
[2021-08-08] MEDS ORDERED: THIAMINE 100 MG/1 ML 2 ML MDV ONE (19:59)
[2021-08-08] MEDS ORDERED: MAGNESIUM SULFATE 1 GM/2 ML VIAL ONE (19:59)
[2021-08-08] MEDS ORDERED: oxyCODONE 5 MG TABLET PO PRN (21:15)
[2021-08-08 21:16] LABS: CHOL/HDL RATIO 45.5 (<5.0); CHOLESTEROL 591 mg/dL; TRIGLYCERIDES > 2000 mg/dL
--- NOTE | 2021-08-08 21:21 | HISTORY & PHYSICAL EXAMINATION ---
Chief Complaint - Chief Complaint Chief Complaint: abdominal pain History of Present Illness - Admitted From Admitted From:: [facility] - History Obtained From Records Reviewed: yes History obtained from: patient - History of Present Illness HPI Comment/Other: 26-year-old male who presented to the ED with complaint of epigastric and left upper quadrant abdominal pain which has been going on for a couple days. However the abdominal pain was significantly worse around 3 AM today and has been clean and intensity between 8-9 on a 10 scale through out the day. He has also been nauseous and vomiting. He last ate the previous day. As a result of his symptoms he came to the ED for evaluation. Currently he rates his pain 6 out of 10. He has previous history of pancreatitis last year. He has history of alcohol abuse and used to drinking 1-2 fifths bottles of vodka daily. However currently he drinks several beers and a few shots. He last drank this afternoon. In the ED included lipase level which was 792. He also had a lipid panel done which showed a triglyceride greater than 2000. He was presented for admission for further management. At bedside he was resting comfortably. He denied chest pain, dyspnea, fever. The rest of his history is unremarkable. 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 It is unclear what the cause of his pancreatitis was. Social History Notes: Home with his girlfriend and his grandmother. He drinks about two shots of whiskey and a couple of beers daily. He uses an e-cigarette and occasionally uses marijuana. 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 - POLST Patient has POLST: No POLST Status: Full Code Meds/Allgy - Home Medications Home Medications: Ambulatory Orders Medication Instructions Recorded Confirmed chlordiazePOXIDE [Librium] 25 mg PO Q6H #20 01/04/21 chlordiazePOXIDE [Librium] 25 mg PO Q6H PRN #20 tab 06/16/21 - Allergies Allergies/Adverse Reactions: Allergies Allergy/AdvReac Type Severity Reaction Status Date / Time No Known Drug Allergies Allergy Verified 08/08/21 18:28 Review of Systems - Constitutional Constitutional: denies: Fatigue, Fever, Chills - Eyes Eyes: denies: Pain, Dipolpia - Ears, Nose & Throat Ears, Nose & Throat: denies: Ear pain, Sore throat - Cardiovascular Cariovascular: denies: Irregular heart rate, Palpitations, Chest pain, Edema, Lightheadedness, Syncope, Exertional dyspnea - Respiratory Respiratory: denies: Cough, Sputum production, Wheezing, SOB at rest, SOB with exertion - Gastrointestinal Gastrointestinal: reports: Abdominal pain, Nausea, Vomiting. denies: Abdominal distention, Constipation, Diarrhea, Coffee grounds emesis, Reflux/heartburn - Genitourinary Genitourinary: denies: Dysuria, Frequency, Urgency - Musculoskeletal Musculoskeletal: denies: Muscle pain, Back pain, Muscle aches - Integumentary Integumentary: denies: Rash, Pruritis, Lesions, Dryness - Neurological Neurological: denies: General weakness, Focal weakness, Headache, Dizziness - Psychiatric Psychiatric: denies: Depression, Anxiety - Endocrine Endocrine: denies: Polyuria, Polydypsia - Hematologic/Lymphatic Hematologic/Lymphatic: denies: Anemia, Bruising, Petechiae Prior Level of Functionality: Patient is independent of activities of daily living. Exam - Vital Signs Vital Signs: Vital Signs x48h Temp Pulse Resp BP Pulse Ox 08/08/21 20:33 74 16 137/84 H 97 08/08/21 18:28 36.5 C 90 16 135/79 H 98 - Physical Exam General Appearance: positive: Alert, Moderate distress Eyes Bilateral: positive: PERRL, EOMI ENT: positive: No signs of dehydration Neck: positive: No JVD, Trachea midline Respiratory: positive: Chest non-tender, No respiratory distress, Breath sounds nml. negative: Wheezes, Rales, Rhonchi Cardiovascular: positive: Regular rate & rhythm, No murmur Abdomen: positive: Nml bowel sounds, No distention, Tenderness (epigastrium). negative: Guarding, Rebound Back: positive: Nml inspection Skin: positive: Color nml, No rash, Warm, Dry. negative: Cyanosis Extremities: positive: Non-tender, Full ROM, Nml appearance, No pedal edema Neurologic/Psychiatric: positive: Oriented x3, Motor nml, Mood/affect nml Conclusion/Plan - Problem List (1) Pancreatitis Conclusion/Plan: Likely secondary to alcohol abuse and hypertriglyceridemia. Blood alcohol level was 138.7. Lipase was 792. We will trend lipase daily. Will start patient on insulin drip and D5 plus half normal saline +20 mEq of potassium chloride. Triglyceride level was greater than 2000. We will check lipid panel daily IV hydration with normal saline at 150 mL/h ordered. Patient made n.p.o. except for ice chips, sips and medications. Pain management as needed. CT abdomen/pelvis pending. Qualifiers: Chronicity: acute Pancreatitis type: alcohol induced Acute pancreatitis complication: unspecified Qualified Code(s): K85.20 - Alcohol induced acute pancreatitis without necrosis or infection (2) Alcoholism Conclusion/Plan: [facility] protocol initiated. Librium 25 mg p.o. twice daily. Vitamin B1 ordered. (3) Hypertriglyceridemia Conclusion/Plan: Triglyceride level was greater than 2000. Cholesterol 591. We will monitor her lipid panel daily. Patient will be admitted to the ICU and started on insulin drip at 5 units/h and D5 plus half normal saline +20 mEq of potassium chloride at 150 mL/h Prior to discharge patient will be started on omega-3 fatty acids and gemfibro zil. Patient would need to follow-up with endocrinology in the outpatient setting for evaluation regarding possible Familial hypertriglyceridemia (4) Leukocytosis Conclusion/Plan: Likely reactive. White blood cell count was 15. We will monitor. - Lab Results Fish Bones: 08/08/21 21:42 08/08/21 21:42 Core Measures - Anticipated LOS I expect patient to be DC'd or transferred within 96 hours.: Yes - DVT/VTE - Prophylaxis VTE/DVT Device ordered at admit?: Yes
[2021-08-08] MEDS ORDERED: IOVERSOL 320 100 ML VIAL IVP ONE ×2 (21:28→21:42)
[2021-08-08 21:36] LABS: LDLD/HDL RATIO 0.8 (<3.6)
[2021-08-08 21:48] LABS: BASOPHILS % (AUTO) 0.2 %; EOSINOPHILS % (AUTO) 0.1 %; HCT - HEMATOCRIT 43.7 % (42.0-52.0); HGB - HEMOGLOBIN 15.9 g/dL (14.0-18.0); LYMPHOCYTES # (AUTO) 0.8 10^3/uL (1.5-3.5); LYMPHOCYTES % (AUTO) 4.5 %; MEAN CORPUSCULAR HEMOGLOBIN 34.2 pg (27.0-31.0); MEAN CORPUSCULAR HGB CONC 36.4 g/dL (32.0-36.0); MEAN PLATELET VOLUME 9.8 fL (7.4-11.4); MONOCYTES # (AUTO) 1.2 10^3/uL (0.0-1.0); MONOCYTES % (AUTO) 6.7 %; NEUTROPHILS # (AUTO) 15.9 10^3/uL (1.5-6.6); PLT - PLATELET COUNT 147 10^3/uL (130-450); RED BLOOD COUNT 4.65 10^6/uL (4.70-6.10); RED CELL DISTRIBUTION WIDTH 12.7 % (12.0-15.0); WHITE BLOOD COUNT 18.1 x10^3/uL (4.8-10.8)
[2021-08-08] MEDS ORDERED: INSULIN REGULAR HUMAN 100 UNIT in SODIUM CHLORIDE 0.9% 100ML 99 ML IV ONE (21:52)
[2021-08-08] MEDS ORDERED: SODIUM CHLORIDE 0.9% 1,000 ML IV SCH (22:00)
[2021-08-08 22:03] LABS: ALBUMIN 3.1 g/dL (3.2-5.5); ALBUMIN/GLOBULIN RATIO 1.1 (1.0-2.2); CREATININE 0.9 mg/dL (0.6-1.2); POTASSIUM 3.7 mmol/L (3.5-5.0); TOTAL PROTEIN 5.8 g/dL (6.7-8.2)
--- NOTE | 2021-08-08 22:07 | CT Report ---
PROCEDURE: Abdomen/Pelvis W INDICATIONS: abdominal pain CONTRAST: IV CONTRAST: Optiray 320 ml: 100 PO CONTRAST: *NO PO CONTRAST TECHNIQUE: After the administration of IV contrast, 5 mm thick sections acquired from the diaphragms to the symp hysis. 5 mm thick coronal and sagittal reformats were acquired. For radiation dose reduction, the f ollowing was used: automated exposure control, adjustment of mA and/or kV according to patient size. COMPARISON: None. FINDINGS: Image quality: Excellent. ABDOMEN: Lung bases: Lung bases are clear. Heart size is normal. Solid organs: Liver is normal in size and enhancement. Spleen is absent. Gallbladder is within obie l limits Biliary system is non dilated. Inflammatory changes and free fluid noted adjacent to the pa ncreas compatible with pancreatitis. There is diminished postcontrast enhancement involving the tail of pancreas which may represent necrosis. No pseudocyst identified in the current study. No adrenal n odules. Kidneys demonstrate normal size and enhancement, without hydronephrosis. Peritoneum and bowel: Bowel loops demonstrate normal wall thickness and caliber. Scattered diverticu li noted in the left colon without evidence of diverticulitis. No free fluid or air. The appendix is normal. Nodes and vessels: No retroperitoneal or mesenteric adenopathy by size criteria. Aorta and inferior vena cava are normal in size. Miscellaneous: No ventral hernias. PELVIS: Genitourinary: Bladder wall thickness is normal. Miscellaneous: No inguinal hernias or adenopathy. Bones: No suspicious bony lesions. No vertebral body compression fractures. IMPRESSION: 1. Acute pancreatitis. There is diminished postcontrast enhancement in the tail the pancreas concerni ng for pancreatic necrosis. 2. Status post splenectomy. 3. Colonic diverticulosis without evidence of diverticulitis. Reviewed by: Lorene Rousseau MD, PhD on 08/08/2021 10:05 PM PST Approved by: Lorene Rousseau MD, PhD on 08/08/2021 10:05 PM PST Station ID: [id number]
[2021-08-08] MEDS ORDERED: INSULIN REGULAR HUMAN 100 UNIT/1 ML 10 ML MDV ONE (22:33)
[2021-08-08] MEDS: D5.45NS W/20 MEQ KCL 1,000 ML IV SCH (23:00)
[2021-08-08 23:52] LABS: B. PARAPERTUSSIS- RESP PCR PAN NOT DETECTED; B. PERTUSSIS- RESP PCR PANEL NOT DETECTED; C. PNEUMONIAE- RESP PCR PANEL NOT DETECTED; CORONAVIRUS 229E-RESP PCR NOT DETECTED; CORONAVIRUS HKU1-RESP PCR NOT DETECTED; CORONAVIRUS NL63-RESP PCR NOT DETECTED; CORONAVIRUS OC43-RESP PCR NOT DETECTED; HUMAN METAPNEUMOVIRUS NOT DETECTED; INFLUENZA A- RESP PCR PANEL NOT DETECTED; INFLUENZA B - RESP PCR PANEL NOT DETECTED; M. PNEUMONIAE- RESP PCR PANEL NOT DETECTED; PARAINFLUENZA VIRUS 1 NOT DETECTED; PARAINFLUENZA VIRUS 2 NOT DETECTED; PARAINFLUENZA VIRUS 3 NOT DETECTED; PARAINFLUENZA VIRUS 4 NOT DETECTED; RHINOVIRUS/ENTEROVIRUS NOT DETECTED; RSV- RESP PCR PANEL NOT DETECTED; SARS-CoV-2 -RESP PCR PANEL NOT DETECTED
[2021-08-09] MEDS: LORazepam 2 MG/ML VIAL IVP PRN ×4 (01:28→14:46)
[2021-08-09] MEDS: chlordiazePOXIDE 25 MG CAPSULE PO SCH ×4 (01:28→22:01)
[2021-08-09] MEDS: SODIUM CHLORIDE FLUSH 0.9% 10 ML SYRINGE IVP SCH ×4 (01:33→17:21)
[2021-08-09] MEDS: HYDROmorphone 0.5 MG/0.5 ML SYRINGE IVP PRN ×2 (02:37→04:21)
[2021-08-09 05:10] LABS: BASOPHILS # (AUTO) 0.1 10^3/uL (0.0-0.1); BASOPHILS % (AUTO) 0.4 %; EOSINOPHILS # (AUTO) 0.3 10^3/uL (0.0-0.7); EOSINOPHILS % (AUTO) 1.7 %; HCT - HEMATOCRIT 46.1 % (42.0-52.0); HGB - HEMOGLOBIN 16.6 g/dL (14.0-18.0); LYMPHOCYTES # (AUTO) 1.1 10^3/uL (1.5-3.5); LYMPHOCYTES % (AUTO) 6.4 %; MEAN CORPUSCULAR HEMOGLOBIN 33.7 pg (27.0-31.0); MEAN CORPUSCULAR VOLUME 93.7 fL (80.0-94.0); MEAN PLATELET VOLUME 10.9 fL (7.4-11.4); MONOCYTES # (AUTO) 0.9 10^3/uL (0.0-1.0); MONOCYTES % (AUTO) 5.1 %; NEUTROPHILS # (AUTO) 14.7 10^3/uL (1.5-6.6); NEUTROPHILS % (AUTO) 85.8 %; PLT - PLATELET COUNT 140 10^3/uL (130-450); RED BLOOD COUNT 4.92 10^6/uL (4.70-6.10); RED CELL DISTRIBUTION WIDTH 12.6 % (12.0-15.0); WHITE BLOOD COUNT 17.1 x10^3/uL (4.8-10.8)
[2021-08-09 05:47] LABS: ALBUMIN/GLOBULIN RATIO 1.1 (1.0-2.2)
[2021-08-09] MEDS: D5.45NS W/20 MEQ KCL 1,000 ML IV SCH (05:47)
[2021-08-09 05:48] LABS: ALKALINE PHOSPHATASE 128 IU/L (42-121); ALT ALANINE AMINOTRANSFERASE 120 IU/L (10-60); AST ASPARTATE AMINOTRANSFERASE 175 IU/L (10-42); BILIRUBIN,TOTAL 2.2 mg/dL (0.2-1.0); BUN - BLOOD UREA NITROGEN < 5 mg/dL (6-20); CARBON DIOXIDE - CO2 19 mmol/L (21-32); CHLORIDE 97 mmol/L (101-111); GLUCOSE 72 mg/dL (70-100); LIPASE 554 U/L (22-51); SODIUM 127 mmol/L (135-145); TOTAL PROTEIN 5.8 g/dL (6.7-8.2)
[2021-08-09 05:55] LABS: CREATININE 0.8 mg/dL (0.6-1.2); GFR - MDRD 116 (>89)
[2021-08-09 06:04] LABS: CHOLESTEROL 490 mg/dL
[2021-08-09 06:05] LABS: TRIGLYCERIDES > 2000 mg/dL
[2021-08-09] MEDS ORDERED: D5.45NS W/20 MEQ KCL 1,000 ML IV SCH (06:53)
[2021-08-09] MEDS ORDERED: INSULIN REGULAR HUMAN 100 UNIT in SODIUM CHLORIDE 0.9% 100ML 99 ML IV ONE (06:53)
[2021-08-09] MEDS ORDERED: HYDROmorphone 0.5 MG/0.5 ML SYRINGE IVP PRN (07:03)
[2021-08-09] MEDS: metroNIDAZOLE 500 MG/100 ML 500 MG/100 ML BAG IV SCH ×2 (08:39→17:20)
[2021-08-09] MEDS: HYDROmorphone 1 MG/ML CARPUJECT IVP PRN ×6 (08:41→22:01)
[2021-08-09] MEDS: ONDANSETRON 4 MG/2 ML VIAL IVP PRN ×2 (08:45→14:47)
[2021-08-09] MEDS: THIAMINE 100 MG TABLET PO SCH (08:49)
[2021-08-09] MEDS: CEFEPIME 2 GM in SODIUM CHLORIDE 0.9% MINIBAG 100 ML IV SCH ×2 (09:53→20:02)
--- NOTE | 2021-08-09 11:18 | PROVIDER PROGRESS NOTE ---
Assessment/Plan - Problem List (1) Pancreatitis Qualifiers: Chronicity: acute Pancreatitis type: alcohol induced Acute pancreatitis complication: unspecified Qualified Code(s): K85.20 - Alcohol induced acute pancreatitis without necrosis or infection Assessment/Plan: Patient has had pancreatitis previously. He says his abdominal sx usually improved in 3 to 4 days. The cause is likely hypertriglyceridemia and his alcohol abuse. Continue with n.p.o. except for ice chips and will also allow popsicles and sips of water. Follow lipase daily. Continue with IV peripheral hydration. Creased the rate from 175 cc/hour to 200 cc/hour for the next day. Continue with antiemetics as needed and iv Dilaudid for pain meds as needed (2) Necrosis of pancreas Assessment/Plan: This was sen/suspected on CT imaging. He has been started on iv Cefepime and Flagyl empirically (for pancreas penetration) since the white blood count is elevated. Cultures were also done. Results are pending (3) Hypertriglyceridemia Assessment/Plan: The serum was so "milky" that the INR could not be run, therefore a lipid panel was done and his triglycerides measured greater than 2000. On repeat Triglycerides were still greater than 2000. He is on an insulin drip to decrease his glucose and triglyceride levels. Continue with IV fluids containing D5. Follow BMP daily plus electrolyte protocol. Follow lipid panel daily (4) Alcohol withdrawal Assessment/Plan: He is tremulous and tachycardic but not having delirium. He also did not have seizures with the current episode of withdrawal, as he has had 3 times in the past. He has been started on scheduled Librium bid and a CIWA protocol using Ativan as needed. Will increase the Librium to 3 times daily for a day, cont CIWA protocol. (5) Alcohol abuse Assessment/Plan: He is getting fluids that contain IV thiamine. Po Thiamine starting also. He is getting medications to prevent alcohol withdrawal. A plan for social work consult is in place when the patient is more lucid, to assist with suggestions for alcohol detox and rehab. Follow LFTs daily Will start Pepcid for ulcer prophylaxis (6) Hyponatremia Assessment/Plan: This is hypovolemic hyponatremia. He is on IV fluids containing 0.5 NS. Will possibly adjust to NS if needed. Follow BMP daily and electrolytes per ICU protocol. (7) Abnormal EKG Assessment/Plan: The EKG is suspicious for an acute or recent anteroseptal NC. The patient has a family history of CAD and with his hyperlipidemia, he himself has a strong coronary risk factor. In addition he uses tobacco. Will order serial troponin levels. Continue with telemetry. (8) S/P splenectomy Assessment/Plan: As per CT abdomen imaging. Therefore, he is at risk for encapsulated organism infections. - Current Meds Current Meds: Current Medications Generic Name Dose Route Start Last Admin Trade Name Freq PRN Reason Stop Dose Admin Chlordiazepoxide HCl 25 mg 08/08/21 22:00 08/09/21 09:27 Chlordiazepoxide 25 Mg Capsule PO 25 mg Q12H HANSEL Administration Hydromorphone HCl 1 mg 08/09/21 07:17 08/09/21 08:41 Hydromorphone 1 Mg/Ml Carpuject IVP 1 mg Q2H PRN Administration Pain 8 to 10 Insulin Human Regular 100 unit 100 mls @ 1 mls/hr 08/09/21 06:53 08/09/21 08:18 / Sodium Chloride IV 08/11/21 21:51 Not Given .Q72H ONE Protocol 1 UNIT/HR Potassium Chloride/Dextrose/Sod Cl 1,000 mls @ 175 mls/hr 08/09/21 06:53 08/09/21 08:18 D5.45ns W/20 Meq Kcl IV Not Given .Q5H43M HANSEL Cefepime HCl 2 gm/ Sodium 100 mls @ 200 mls/hr 08/09/21 09:00 08/09/21 09:53 Chloride IV 200 mls/hr BID HANSEL Administration Metronidazole 500 mg in 100 mls @ 100 mls/hr 08/09/21 08:00 08/09/21 09:39 Flagyl 500 Mg/100 Ml IV Infused Q8H HANSEL Infusion Lorazepam 1 mg 08/08/21 21:25 08/09/21 09:25 Lorazepam 2 Mg/Ml Vial IVP 1 mg Q30M PRN Administration CIWA >8 Protocol Ondansetron HCl 4 mg 08/08/21 21:15 08/09/21 08:45 Ondansetron 4 Mg/2 Ml Vial IVP 4 mg Q6HR PRN Administration Nausea / Vomiting Oxycodone HCl 5 mg 08/08/21 21:15 08/09/21 01:28 Oxycodone 5 Mg Tablet PO 5 mg Q4HR PRN Administration Pain 5 to 7 Sodium Chloride 10 ml 08/09/21 01:00 08/09/21 08:47 Sodium Chloride Flush 0.9% 10 Ml Syringe IVP Not Given 0100,0900,1700 HANSEL Thiamine HCl 100 mg 08/09/21 09:00 08/09/21 08:49 Thiamine 100 Mg Tablet PO 100 mg DAILY HANSEL Administration - Lab Result Fish Bone Diagrams: 08/09/21 04:35 08/09/21 04:35 - EKG Results EKG Interpreted Independently: Yes EKG Comparison: Old EKG unavailable EKG Findings: Sinus tachycardia, rate 109, Q waves present in V1 through V4 and ST elevation V1 through V3, reciprocal ST depression in V6 only. Subjective - Subjective Patient Reports: Abdominal Pain, Other (Thirsty, tremulous) Objective Vital Signs: Vital Signs - 24 hr 08/08/21 08/08/21 08/08/21 18:28 20:33 22:00 Temperature 36.5 C Heart Rate 90 74 72 Heart Rate [ Monitoring electrodes] Respiratory 16 16 16 Rate Blood Pressure 135/79 H 137/84 H 135/81 H Blood Pressure [Right Brachial artery] O2 Saturation 98 97 98 08/09/21 08/09/21 08/09/21 00:00 05:18 07:51 Temperature 36.7 C 37.1 C Heart Rate Heart Rate [ 96 93 117 H Monitoring electrodes] Respiratory 14 16 23 Rate Blood Pressure Blood Pressure 133/80 H 139/98 H 143/106 H [Right Brachial artery] O2 Saturation 97 96 95 08/09/21 08/09/21 08:20 10:14 Temperature 36.8 C Heart Rate Heart Rate [ 118 H Monitoring electrodes] Respiratory 22 Rate Blood Pressure Blood Pressure 139/95 H [Right Brachial artery] O2 Saturation 96 Oxygen O2 Source Room air I&O (Last 24 Hrs): Intake and Output Totals x24h 08/07/21 08/08/21 08/09/21 23:59 23:59 23:59 Intake Total 2195.2 1584.008 Output Total 850 Balance 2195.2 734.008 General: Alert, Oriented x3 HEENT: EOMI, Other (Very dry oral mucosa) Neck: Supple, No JVD Neuro: Alert, Non Focal, Other (Tremor of hands) Cardiovascular: Regular rate, No murmurs Respiratory: No respiratory distress, Breath sounds nml Abdomen: Normal bowel sounds, Soft Extremities: No clubbing, No edema - Results Results: Laboratory Results WBC 17.1 x10^3/uL (4.8-10.8) H 08/09/21 04:35 RBC 4.92 10^6/uL (4.70-6.10) 08/09/21 04:35 Hgb 16.6 g/dL (14.0-18.0) 08/09/21 04:35 Hct 46.1 % (42.0-52.0) 08/09/21 04:35 MCV 93.7 fL (80.0-94.0) 08/09/21 04:35 MCH 33.7 pg (27.0-31.0) H 08/09/21 04:35 MCHC 36.0 g/dL (32.0-36.0) 08/09/21 04:35 RDW 12.6 % (12.0-15.0) 08/09/21 04:35 Plt Count 140 10^3/uL (130-450) 08/09/21 04:35 MPV 10.9 fL (7.4-11.4) 08/09/21 04:35 Neut # (Auto) 14.7 10^3/uL (1.5-6.6) H 08/09/21 04:35 Lymph # (Auto) 1.1 10^3/uL (1.5-3.5) L 08/09/21 04:35 [place]ilion # (Auto) 0.9 10^3/uL (0.0-1.0) 08/09/21 04:35 Eos # (Auto) 0.3 10^3/uL (0.0-0.7) 08/09/21 04:35 Baso # (Auto) 0.1 10^3/uL (0.0-0.1) 08/09/21 04:35 Absolute Nucleated RBC 0.00 x10^3/uL 08/09/21 04:35 Nucleated RBC % 0.0 /100WBC 08/09/21 04:35 Sodium 127 mmol/L (135-145) L 08/09/21 04:35 Potassium 4.0 mmol/L (3.5-5.0) 08/09/21 04:35 Chloride 97 mmol/L (101-111) L 08/09/21 04:35 Carbon Dioxide 19 mmol/L (21-32) L 08/09/21 04:35 Anion Gap 11.0 (6-13) 08/09/21 04:35 BUN < 5 mg/dL (6-20) L 08/09/21 04:35 Creatinine 0.8 mg/dL (0.6-1.2) 08/09/21 04:35 Estimated GFR (MDRD) 116 (>89) 08/09/21 04:35 Glucose 72 mg/dL (70-100) 08/09/21 04:35 POC Whole Bld Glucose 110 mg/dL (70 - 100) H 08/09/21 10:11 Lactic Acid 2.5 mmol/L (0.5-2.2) H 08/09/21 07:26 Calcium 7.0 mg/dL (8.5-10.3) L 08/09/21 04:35 Total Bilirubin 2.2 mg/dL (0.2-1.0) H 08/09/21 04:35 AST 175 IU/L (10-42) H 08/09/21 04:35 ALT 120 IU/L (10-60) H 08/09/21 04:35 Alkaline Phosphatase 128 IU/L (42-121) H 08/09/21 04:35 Troponin I High Sens 9.9 ng/L (2.3-19.7) 08/09/21 10:29 Total Protein 5.8 g/dL (6.7-8.2) L 08/09/21 04:35 Albumin 3.0 g/dL (3.2-5.5) L 08/09/21 04:35 Globulin 2.8 g/dL (2.1-4.2) 08/09/21 04:35 Albumin/Globulin Ratio 1.1 (1.0-2.2) 08/09/21 04:35 Triglycerides > 2000 mg/dL (-149) H 08/09/21 04:35 Cholesterol 490 mg/dL (-199) H 08/09/21 04:35 LDL Cholesterol Direct Not Reportable 08/09/21 04:35 LDL Cholesterol, Calc Not Reportable 08/09/21 04:35 VLDL Cholesterol Not Reportable 08/09/21 04:35 HDL Cholesterol Not Reportable 08/09/21 04:35 LDL/HDL Ratio Not Reportable 08/09/21 04:35 dLDL/HDL Ratio Not Reportable 08/09/21 04:35 Cholesterol/HDL Ratio Not Reportable 08/09/21 04:35 Lipase 554 U/L (22-51) H 08/09/21 04:35 Urine Color DARK YELLOW 08/08/21 18:47 Urine Clarity CLEAR (CLEAR) 08/08/21 18:47 Urine pH 5.5 PH (5.0-7.5) 08/08/21 18:47 Ur Specific Somers >=1.030 (1.002-1.030) H 08/08/21 18:47 Urine Protein TRACE mg/dL (NEGATIVE) 08/08/21 18:47 Urine Glucose (UA) NEGATIVE mg/dL (NEGATIVE) 08/08/21 18:47 Urine Ketones NEGATIVE mg/dL (NEGATIVE) 08/08/21 18:47 Urine Occult Blood NEGATIVE (NEGATIVE) 08/08/21 18:47 Urine Nitrite NEGATIVE (NEGATIVE) 08/08/21 18:47 Urine Bilirubin MODERATE (NEGATIVE) H 08/08/21 18:47 Urine Urobilinogen 1 (NORMAL) E.U./dL (NORMAL) 08/08/21 18:47 Ur Leukocyte Esterase NEGATIVE (NEGATIVE) 08/08/21 18:47 Ur Microscopic Review NOT INDICATED 08/08/21 18:47 Urine Culture Comments NOT INDICATED 08/08/21 18:47 Nasal Adenovirus (PCR) NOT DETECTED 08/08/21 22:54 Nasal B. parapertussis DNA (PCR) NOT DETECTED 08/08/21 22:54 Nasal Coronavir 229E PCR NOT DETECTED 08/08/21 22:54 Nasal Coronavir HKU1 PCR NOT DETECTED 08/08/21 22:54 Nasal Coronavir NL63 PCR NOT DETECTED 08/08/21 22:54 Nasal Coronavir OC43 PCR NOT DETECTED 08/08/21 22:54 Nasal Enterovir/Rhinovir PCR NOT DETECTED 08/08/21 22:54 Nasal Influenza B PCR NOT DETECTED 08/08/21 22:54 Nasal Influenza A PCR NOT DETECTED 08/08/21 22:54 Nasal Parainfluen 1 PCR NOT DETECTED 08/08/21 22:54 Nasal Parainfluen 2 PCR NOT DETECTED 08/08/21 22:54 Nasal Parainfluen 3 PCR NOT DETECTED 08/08/21 22:54 Nasal Parainfluen 4 PCR NOT DETECTED 08/08/21 22:54 Nasal RSV (PCR) NOT DETECTED 08/08/21 22:54 Nasal Screen MRSA (PCR) NEGATIVE (NEGATIVE) 08/08/21 23:30 Nasal B.pertussis DNA PCR NOT DETECTED 08/08/21 22:54 Nasal C.pneumoniae (PCR) NOT DETECTED 08/08/21 22:54 Bladimir Human Metapneumo PCR NOT DETECTED 08/08/21 22:54 Nasal M.pneumoniae (PCR) NOT DETECTED 08/08/21 22:54 Nasal SARS-CoV-2 (PCR) NOT DETECTED 08/08/21 22:54 Ethyl Alcohol 138.7 mg/dL 08/08/21 18:36
[2021-08-09] MEDS: DEXTROSE 5%-0.9% NACL 1,000 ML IV SCH ×3 (12:22→22:42)
[2021-08-09] MEDS ORDERED: CALCIUM CARBONATE CHEW 500 MG TABLET PO PRN (19:26)
[2021-08-09] MEDS: FAMOTIDINE 20 MG TABLET PO SCH (20:02)
[2021-08-10] MEDS: SODIUM CHLORIDE FLUSH 0.9% 10 ML SYRINGE IVP SCH ×4 (00:02→21:16)
[2021-08-10] MEDS: HYDROmorphone 1 MG/ML CARPUJECT IVP PRN ×9 (00:02→23:20)
[2021-08-10] MEDS: metroNIDAZOLE 500 MG/100 ML 500 MG/100 ML BAG IV SCH ×4 (00:02→23:23)
[2021-08-10] MEDS: LORazepam 2 MG/ML VIAL IVP PRN ×3 (00:03→18:58)
[2021-08-10] MEDS: DEXTROSE 5%-0.9% NACL 1,000 ML IV SCH ×4 (04:04→23:24)
[2021-08-10 04:53] LABS: BASOPHILS # (AUTO) 0.1 10^3/uL (0.0-0.1); BASOPHILS % (AUTO) 0.9 %; EOSINOPHILS # (AUTO) 0.1 10^3/uL (0.0-0.7); EOSINOPHILS % (AUTO) 0.4 %; HCT - HEMATOCRIT 45.8 % (42.0-52.0); HGB - HEMOGLOBIN 15.8 g/dL (14.0-18.0); LYMPHOCYTES % (AUTO) 8.4 %; MEAN CORPUSCULAR HEMOGLOBIN 32.6 pg (27.0-31.0); MEAN CORPUSCULAR HGB CONC 34.5 g/dL (32.0-36.0); MEAN CORPUSCULAR VOLUME 94.4 fL (80.0-94.0); MEAN PLATELET VOLUME 12.2 fL (7.4-11.4); MONOCYTES # (AUTO) 0.5 10^3/uL (0.0-1.0); MONOCYTES % (AUTO) 4.8 %; NEUTROPHILS # (AUTO) 9.6 10^3/uL (1.5-6.6); NEUTROPHILS % (AUTO) 84.9 %; PLT - PLATELET COUNT 74 10^3/uL (130-450); RED BLOOD COUNT 4.85 10^6/uL (4.70-6.10); RED CELL DISTRIBUTION WIDTH 12.8 % (12.0-15.0); WHITE BLOOD COUNT 11.3 x10^3/uL (4.8-10.8)
[2021-08-10 05:44] LABS: ALBUMIN 2.6 g/dL (3.2-5.5); ALBUMIN/GLOBULIN RATIO 0.8 (1.0-2.2); BILIRUBIN,TOTAL 4.1 mg/dL (0.2-1.0); CALCIUM 7.2 mg/dL (8.5-10.3); CREATININE 0.8 mg/dL (0.6-1.2); POTASSIUM 4.1 mmol/L (3.5-5.0); TOTAL PROTEIN 5.8 g/dL (6.7-8.2)
[2021-08-10 05:45] LABS: MAGNESIUM 1.9 mg/dL (1.7-2.8); PHOSPHORUS 1.5 mg/dL (2.5-4.6)
[2021-08-10 05:55] LABS: CHOL/HDL RATIO 22.2 (<5.0); CHOLESTEROL 200 mg/dL; HDL CHOLESTEROL 9 mg/dL; TRIGLYCERIDES 531 mg/dL
[2021-08-10] MEDS: chlordiazePOXIDE 25 MG CAPSULE PO SCH ×3 (05:55→21:17)
[2021-08-10 06:01] LABS: CALCIUM, IONIZED 1.03 mmol/L (1.15-1.33); VBG PH 7.349 (7.31-7.41)
[2021-08-10] MEDS ORDERED: SODIUM PHOSPHATE 21 MMOL in SODIUM CHLORIDE 0.9% 250 ML IV ONE (06:21)
[2021-08-10 06:23] LABS: LDL CHOLESTEROL,DIRECT 43 mg/dL; LDLD/HDL RATIO 4.8 (<3.6)
[2021-08-10] MEDS: CALCIUM CARBONATE CHEW 500 MG TABLET PO SCH ×2 (08:06→12:07)
[2021-08-10] MEDS: FAMOTIDINE 20 MG TABLET PO SCH ×2 (08:51→21:17)
[2021-08-10] MEDS: THIAMINE 100 MG TABLET PO SCH (08:52)
[2021-08-10] MEDS: CEFEPIME 2 GM in SODIUM CHLORIDE 0.9% MINIBAG 100 ML IV SCH ×2 (09:05→21:17)
[2021-08-10] MEDS: ONDANSETRON 4 MG/2 ML VIAL IVP PRN ×2 (09:48→15:47)
[2021-08-10 12:58] LABS: ESTIMATED AVERAGE GLUCOSE 100 mg/dL (70-100); HEMOGLOBIN A1c% 5.1 % (4.27-6.07)
[2021-08-10] MEDS ORDERED: ALBUMIN 25% 12.5 GM/50 ML VIAL IV STA (15:06)
[2021-08-10] MEDS: FUROSEMIDE 20 MG/2 ML VIAL IVP STA ×2 (15:54→15:55)
--- NOTE | 2021-08-10 16:45 | PROVIDER PROGRESS NOTE ---
Assessment/Plan - Problem List (1) Pancreatitis Qualifiers: Chronicity: acute Pancreatitis type: alcohol induced Acute pancreatitis complication: unspecified Qualified Code(s): K85.20 - Alcohol induced acute pancreatitis without necrosis or infection Assessment/Plan: He is still requiring pain meds, no further antiemetics. He tried pured diet which gave him abdominal pain. We will continue him on clear liquids and trials of pured food very slowly. His IV fluids will continue while he is not taking oral liquids for hydration and to keep up his glucose while he is still on insulin drip for the hypertriglyceridemia Remain in the ICU until off Insulin drip (2) Necrosis of pancreas Assessment/Plan: He remains on empiric IV antibiotics. Concern is that the unrelenting abdominal pain could be from necrosis. We are watching his WBC count. General surgery consult will be considered (3) Hypertriglyceridemia Assessment/Plan: Today serum triglycerides are in the 500s, previous days TG were >2000, which may also have caused the pancreatitis. Yesterday, we learned his history that he skips breakfast because of abdominal pain, eats candy all day long and drinks alcohol all day long. He occasionally has dinner with a diet including protein. We will continue with IV insulin for an additional day. Follow triglycerides daily. Nutrition consult has been requested (however the RD is off because of the New Year's weekend break) (4) Alcohol withdrawal Assessment/Plan: He is getting Librium, the dose will start to be tapered. He is remains on a CIWA protocol as well. (5) Alcohol abuse Assessment/Plan: He was getting IV thiamine, this has been changed to p.o. thiamine daily. He is getting scheduled Librium and is on a CIWA protocol using as needed IV Ativan. I discussed the importance of stopping alcohol abuse with him and questioned whether he continues high alcohol intake because he is depressed or suicidal. He had denied being suicidal but thinks he is mildly depressed. Will request social work consult when he is off benzodiazepines. (6) Hyponatremia Assessment/Plan: This is likely related to his alcohol intake with very little protein in the diet. Will give IV albumin x1 today followed by Lasix IV x1, since he is edematous and urine output measurement may be unreliable, but has decreased. Continue NS, we are decreasing his peripheral IV rate slightly (7) Abnormal EKG Assessment/Plan: Troponins were normal x2. There is no old EKG available for comparison. We do not have echo available over the holiday weekend (8) S/P splenectomy Assessment/Plan: As per history. He is therefore at risk for infections from encapsulated organisms. - Current Meds Current Meds: Current Medications Generic Name Dose Route Start Last Admin Trade Name Freq PRN Reason Stop Dose Admin Chlordiazepoxide HCl 25 mg 08/09/21 14:00 08/10/21 12:51 Chlordiazepoxide 25 Mg Capsule PO 25 mg TID HANSEL Administration Famotidine 20 mg 08/09/21 21:00 08/10/21 08:51 Famotidine 20 Mg Tablet PO 20 mg BID HANSEL Administration Hydromorphone HCl 1 mg 08/09/21 07:17 08/10/21 15:47 Hydromorphone 1 Mg/Ml Carpuject IVP 1 mg Q2H PRN Administration Pain 8 to 10 Insulin Human Regular 100 unit 100 mls @ 1 mls/hr 08/09/21 06:53 08/09/21 08:18 / Sodium Chloride IV 08/11/21 21:51 Not Given .Q72H ONE Protocol 1 UNIT/HR Cefepime HCl 2 gm/ Sodium 100 mls @ 200 mls/hr 08/09/21 09:00 08/10/21 09:35 Chloride IV Infused BID HANSEL Infusion Metronidazole 500 mg in 100 mls @ 100 mls/hr 08/09/21 08:00 08/10/21 16:07 Flagyl 500 Mg/100 Ml IV 100 mls/hr Q8H HANSEL Administration Dextrose/Sodium Chloride 1,000 mls @ 125 mls/hr 08/10/21 16:00 08/10/21 16:06 D5ns IV 125 mls/hr .Q8H HANSEL Administration Lorazepam 1 mg 08/08/21 21:25 08/10/21 04:04 Lorazepam 2 Mg/Ml Vial IVP 1 mg Q30M PRN Administration CIWA >8 Protocol Ondansetron HCl 4 mg 08/08/21 21:15 08/10/21 15:47 Ondansetron 4 Mg/2 Ml Vial IVP 4 mg Q6HR PRN Administration Nausea / Vomiting Sodium Chloride 10 ml 08/09/21 01:00 08/10/21 16:10 Sodium Chloride Flush 0.9% 10 Ml Syringe IVP Not Given 0100,0900,1700 HANSEL Thiamine HCl 100 mg 08/09/21 09:00 08/10/21 08:52 Thiamine 100 Mg Tablet PO 100 mg DAILY HANSEL Administration - Lab Result Fish Bone Diagrams: 08/10/21 04:30 08/10/21 04:30 - Additional Planning My Orders: My Active Orders 08/09/21 17:17 Nutrition Consult [CONS] Routine 08/09/21 21:00 Famotidine [Pepcid] 20 mg PO BID 08/10/21 Lunch Dysphagia - Puree [DIET] 08/10/21 16:00 Dextrose 5%-0.9% NaCl [D5ns] 1,000 ml IV 125 mls/hr Subjective - Subjective Patient Reports: Abdominal Pain (He tried taking pured food for breakfast and after about 2 bites, developed abdominal pain and stopped eating) Objective Vital Signs: Vital Signs - 24 hr 08/09/21 08/09/21 08/09/21 17:00 18:00 18:52 Temperature Heart Rate [ 139 H 132 H 133 H Monitoring electrodes] Respiratory 22 24 15 Rate Blood Pressure 134/93 H 145/91 H [Right Brachial artery] O2 Saturation 95 94 94 08/09/21 08/09/21 08/09/21 20:00 21:00 22:00 Temperature Heart Rate [ 134 H 135 H 132 H Monitoring electrodes] Respiratory 16 19 19 Rate Blood Pressure 144/89 H 136/91 H 145/99 H [Right Brachial artery] O2 Saturation 92 94 95 08/09/21 08/10/21 08/10/21 23:00 00:00 01:00 Temperature Heart Rate [ 127 H 130 H 135 H Monitoring electrodes] Respiratory 18 20 17 Rate Blood Pressure 145/95 H 149/93 H 140/87 H [Right Brachial artery] O2 Saturation 94 93 93 08/10/21 08/10/21 08/10/21 02:00 03:00 04:00 Temperature 38.0 C H Heart Rate [ 131 H 125 H 126 H Monitoring electrodes] Respiratory 18 20 17 Rate Blood Pressure 132/89 H 139/95 H 142/98 H [Right Brachial artery] O2 Saturation 94 93 92 08/10/21 08/10/21 08/10/21 05:00 06:00 07:00 Temperature 38.4 C H Heart Rate [ 127 H 121 H 120 H Monitoring electrodes] Respiratory 18 17 17 Rate Blood Pressure 146/97 H 139/94 H 133/92 H [Right Brachial artery] O2 Saturation 93 94 92 08/10/21 08/10/21 08/10/21 08:00 09:00 10:00 Temperature Heart Rate [ 110 H 122 H 127 H Monitoring electrodes] Respiratory 20 25 H 23 Rate Blood Pressure 130/90 H 131/100 H 140/93 H [Right Brachial artery] O2 Saturation 93 95 94 08/10/21 08/10/21 08/10/21 11:00 12:00 13:00 Temperature 36.9 C Heart Rate [ 120 H 122 H 119 H Monitoring electrodes] Respiratory 26 H 18 18 Rate Blood Pressure 138/87 H 140/86 H 134/88 H [Right Brachial artery] O2 Saturation 94 94 94 08/10/21 08/10/21 08/10/21 14:00 15:00 16:00 Temperature 37.8 C Heart Rate [ 115 H 115 H 118 H Monitoring electrodes] Respiratory 20 18 23 Rate Blood Pressure 136/87 H 135/75 H 122/72 [Right Brachial artery] O2 Saturation 94 94 94 Oxygen O2 Source Room air I&O (Last 24 Hrs): Intake and Output Totals x24h 08/08/21 08/09/21 08/10/21 23:59 23:59 23:59 Intake Total 2195.2 6310.675 5347 Output Total 1500 1225 Balance 2195.2 4810.675 4122 General: Alert, Oriented x3 HEENT: Mucous membr. moist/pink, Other (edematous facies) Neck: Supple Neuro: Alert, Non Focal, Other (Lethargic) Cardiovascular: Regular rate Respiratory: No respiratory distress Abdomen: Soft Extremities: Other (Trace pitting edema) - Results Results: Laboratory Results WBC 11.3 x10^3/uL (4.8-10.8) H 08/10/21 04:30 RBC 4.85 10^6/uL (4.70-6.10) 08/10/21 04:30 Hgb 15.8 g/dL (14.0-18.0) 08/10/21 04:30 Hct 45.8 % (42.0-52.0) 08/10/21 04:30 MCV 94.4 fL (80.0-94.0) H 08/10/21 04:30 MCH 32.6 pg (27.0-31.0) H 08/10/21 04:30 MCHC 34.5 g/dL (32.0-36.0) 08/10/21 04:30 RDW 12.8 % (12.0-15.0) 08/10/21 04:30 Plt Count 74 10^3/uL (130-450) L 08/10/21 04:30 MPV 12.2 fL (7.4-11.4) H 08/10/21 04:30 Neut # (Auto) 9.6 10^3/uL (1.5-6.6) H 08/10/21 04:30 Lymph # (Auto) 1.0 10^3/uL (1.5-3.5) L 08/10/21 04:30 [place] # (Auto) 0.5 10^3/uL (0.0-1.0) 08/10/21 04:30 Eos # (Auto) 0.1 10^3/uL (0.0-0.7) 08/10/21 04:30 Baso # (Auto) 0.1 10^3/uL (0.0-0.1) 08/10/21 04:30 Absolute Nucleated RBC 0.00 x10^3/uL 08/10/21 04:30 Nucleated RBC % 0.0 /100WBC 08/10/21 04:30 VBG pH 7.349 (7.31-7.41) 08/10/21 04:30 Ionized Calcium 1.03 mmol/L (1.15-1.33) L 08/10/21 04:30 Sodium 131 mmol/L (135-145) L 08/10/21 04:30 Potassium 4.1 mmol/L (3.5-5.0) 08/10/21 04:30 Chloride 103 mmol/L (101-111) 08/10/21 04:30 Carbon Dioxide 19 mmol/L (21-32) L 08/10/21 04:30 Anion Gap 9.0 (6-13) 08/10/21 04:30 BUN 12 mg/dL (6-20) 08/10/21 04:30 Creatinine 0.8 mg/dL (0.6-1.2) 08/10/21 04:30 Estimated GFR (MDRD) 116 (>89) 08/10/21 04:30 Glucose 127 mg/dL (70-100) H 08/10/21 04:30 POC Whole Bld Glucose 96 mg/dL (70 - 100) 08/10/21 16:02 Estimat Average Glucose 100 mg/dL (70-100) 08/10/21 04:30 Hemoglobin A1c % 5.1 % (4.27-6.07) 08/10/21 04:30 Lactic Acid 2.5 mmol/L (0.5-2.2) H 08/09/21 07:26 Calcium 7.2 mg/dL (8.5-10.3) L 08/10/21 04:30 Phosphorus 1.5 mg/dL (2.5-4.6) L 08/10/21 04:30 Magnesium 1.9 mg/dL (1.7-2.8) 08/10/21 04:30 Total Bilirubin 4.1 mg/dL (0.2-1.0) H 08/10/21 04:30 AST 70 IU/L (10-42) H 08/10/21 04:30 ALT 72 IU/L (10-60) H 08/10/21 04:30 Alkaline Phosphatase 93 IU/L (42-121) 08/10/21 04:30 Troponin I High Sens 9.9 ng/L (2.3-19.7) 08/09/21 10:29 Total Protein 5.8 g/dL (6.7-8.2) L 08/10/21 04:30 Albumin 2.6 g/dL (3.2-5.5) L 08/10/21 04:30 Globulin 3.2 g/dL (2.1-4.2) 08/10/21 04:30 Albumin/Globulin Ratio 0.8 (1.0-2.2) L 08/10/21 04:30 Triglycerides 531 mg/dL (-149) H 08/10/21 04:30 Cholesterol 200 mg/dL (-199) H 08/10/21 04:30 LDL Cholesterol Direct 43 mg/dL (-129) 08/10/21 04:30 LDL Cholesterol, Calc Not Reportable 08/10/21 04:30 VLDL Cholesterol Not Reportable 08/10/21 04:30 HDL Cholesterol 9 mg/dL (60-) L 08/10/21 04:30 LDL/HDL Ratio Not Reportable 08/10/21 04:30 dLDL/HDL Ratio 4.8 (<3.6) 08/10/21 04:30 Cholesterol/HDL Ratio 22.2 (<5.0) 08/10/21 04:30 Lipase 164 U/L (22-51) H 08/10/21 04:30 Urine Color DARK YELLOW 08/08/21 18:47 Urine Clarity CLEAR (CLEAR) 08/08/21 18:47 Urine pH 5.5 PH (5.0-7.5) 08/08/21 18:47 Ur Specific [place] >=1.030 (1.002-1.030) H 08/08/21 18:47 Urine Protein TRACE mg/dL (NEGATIVE) 08/08/21 18:47 Urine Glucose (UA) NEGATIVE mg/dL (NEGATIVE) 08/08/21 18:47 Urine Ketones NEGATIVE mg/dL (NEGATIVE) 08/08/21 18:47 Urine Occult Blood NEGATIVE (NEGATIVE) 08/08/21 18:47 Urine Nitrite NEGATIVE (NEGATIVE) 08/08/21 18:47 Urine Bilirubin MODERATE (NEGATIVE) H 08/08/21 18:47 Urine Urobilinogen 1 (NORMAL) E.U./dL (NORMAL) 08/08/21 18:47 Ur Leukocyte Esterase NEGATIVE (NEGATIVE) 08/08/21 18:47 Ur Microscopic Review NOT INDICATED 08/08/21 18:47 Urine Culture Comments NOT INDICATED 08/08/21 18:47 Nasal Adenovirus (PCR) NOT DETECTED 08/08/21 22:54 Nasal B. parapertussis DNA (PCR) NOT DETECTED 08/08/21 22:54 Nasal Coronavir 229E PCR NOT DETECTED 08/08/21 22:54 Nasal Coronavir HKU1 PCR NOT DETECTED 08/08/21 22:54 Nasal Coronavir NL63 PCR NOT DETECTED 08/08/21 22:54 Nasal Coronavir OC43 PCR NOT DETECTED 08/08/21 22:54 Nasal Enterovir/Rhinovir PCR NOT DETECTED 08/08/21 22:54 Nasal Influenza B PCR NOT DETECTED 08/08/21 22:54 Nasal Influenza A PCR NOT DETECTED 08/08/21 22:54 Nasal Parainfluen 1 PCR NOT DETECTED 08/08/21 22:54 Nasal Parainfluen 2 PCR NOT DETECTED 08/08/21 22:54 Nasal Parainfluen 3 PCR NOT DETECTED 08/08/21 22:54 Nasal Parainfluen 4 PCR NOT DETECTED 08/08/21 22:54 Nasal RSV (PCR) NOT DETECTED 08/08/21 22:54 Nasal Screen MRSA (PCR) NEGATIVE (NEGATIVE) 08/08/21 23:30 Nasal B.pertussis DNA PCR NOT DETECTED 08/08/21 22:54 Nasal C.pneumoniae (PCR) NOT DETECTED 08/08/21 22:54 Bladimir Human Metapneumo PCR NOT DETECTED 08/08/21 22:54 Nasal M.pneumoniae (PCR) NOT DETECTED 08/08/21 22:54 Nasal SARS-CoV-2 (PCR) NOT DETECTED 08/08/21 22:54 Ethyl Alcohol 138.7 mg/dL 08/08/21 18:36
[2021-08-10] MEDS ORDERED: METOPROLOL 5 MG/5 ML VIAL IVP STA (20:38)
[2021-08-10] MEDS: SODIUM CHLORIDE FLUSH 0.9% 10 ML SYRINGE IVP PRN ×2 (21:17→23:21)
[2021-08-11] MEDS ORDERED: INSULIN REGULAR HUMAN 100 UNIT in SODIUM CHLORIDE 0.9% 100ML 99 ML IV ONE (01:00)
[2021-08-11] MEDS: HYDROmorphone 1 MG/ML CARPUJECT IVP PRN ×7 (01:45→21:23)
[2021-08-11] MEDS: SODIUM CHLORIDE FLUSH 0.9% 10 ML SYRINGE IVP PRN (01:45)
[2021-08-11] MEDS: ONDANSETRON 4 MG/2 ML VIAL IVP PRN (01:45)
[2021-08-11 04:52] LABS: BASOPHILS % (AUTO) 0.6 %; EOSINOPHILS % (AUTO) 0.2 %; HCT - HEMATOCRIT 37.3 % (42.0-52.0); LYMPHOCYTES % (AUTO) 5.1 %; MEAN CORPUSCULAR HEMOGLOBIN 32.9 pg (27.0-31.0); MEAN CORPUSCULAR HGB CONC 34.9 g/dL (32.0-36.0); MEAN CORPUSCULAR VOLUME 94.4 fL (80.0-94.0); MEAN PLATELET VOLUME 12.7 fL (7.4-11.4); MONOCYTES % (AUTO) 7.1 %; NEUTROPHILS % (AUTO) 86.5 %; PLT - PLATELET COUNT 69 10^3/uL (130-450); RED BLOOD COUNT 3.95 10^6/uL (4.70-6.10); RED CELL DISTRIBUTION WIDTH 13.3 % (12.0-15.0); WHITE BLOOD COUNT 11.1 x10^3/uL (4.8-10.8)
[2021-08-11 04:57] LABS: ABNORMAL LYMPHS % (MANUAL) 0 %
[2021-08-11 05:00] LABS: CALCIUM, IONIZED 1.1 mmol/L (1.15-1.33); VBG PH 7.377 (7.31-7.41)
[2021-08-11 05:14] LABS: BUN - BLOOD UREA NITROGEN 10 mg/dL (6-20); CARBON DIOXIDE - CO2 26 mmol/L (21-32); CHLORIDE 99 mmol/L (101-111); CHOL/HDL RATIO 18.3 (<5.0); CHOLESTEROL 146 mg/dL; CREATININE 0.7 mg/dL (0.6-1.2); GFR - MDRD 135 (>89); GLUCOSE 120 mg/dL (70-100); HDL CHOLESTEROL 8 mg/dL; LDL CHOLESTEROL,CALCULATED 97 mg/dL; LDL/HDL RATIO 12.1 (<3.6); PHOSPHORUS 1.7 mg/dL (2.5-4.6); SODIUM 133 mmol/L (135-145); TRIGLYCERIDES 205 mg/dL; VLDL CHOLESTEROL 41 mg/dL
[2021-08-11 05:20] LABS: BAND NEUTROPHILS % (MANUAL) 28 %; DIFFERENTIAL COMMENT MANUAL DIFFERENTIAL; LYMPHOCYTES # (MANUAL) 0.7 10^3/uL (1.5-3.5); LYMPHOCYTES % (MANUAL) 6 %; MONOCYTES # (MANUAL) 0.6 10^3/uL (0.0-1.0); NEUTROPHILS # (MANUAL) 9.9 10^3/uL (1.5-6.6); PLATELET ESTIMATE, MANUAL DECREASED (<130,000) (NORMAL); RBC MORPHOLOGY (MULTIPLE) NORMAL APPEARANCE (NORMAL)
[2021-08-11] MEDS: chlordiazePOXIDE 25 MG CAPSULE PO SCH (05:24)
[2021-08-11] MEDS: LORazepam 2 MG/ML VIAL IVP PRN ×2 (06:36→21:28)
[2021-08-11] MEDS ORDERED: METOPROLOL TARTRATE 25 MG TABLET PO STA (07:09)
[2021-08-11] MEDS: DEXTROSE 5%-0.9% NACL 1,000 ML IV SCH ×3 (07:14→21:23)
[2021-08-11] MEDS: NEUTRA-PHOS 250 MG TABLET PO SCH ×2 (07:14→09:23)
[2021-08-11] MEDS ORDERED: gemfibroziL 600 MG TABLET PO SCH (08:00)
[2021-08-11] MEDS ORDERED: OMEGA-3 ACID ETHYL ESTERS 1 GM CAPSULE PO SCH (09:00)
[2021-08-11] MEDS: FAMOTIDINE 20 MG TABLET PO SCH (09:20)
[2021-08-11] MEDS: metroNIDAZOLE 500 MG/100 ML 500 MG/100 ML BAG IV SCH ×3 (09:21→23:23)
[2021-08-11] MEDS: NICOTINE 7 MG PATCH TOP SCH (09:24)
[2021-08-11] MEDS: THIAMINE 100 MG TABLET PO SCH (09:24)
[2021-08-11] MEDS: CEFEPIME 2 GM in SODIUM CHLORIDE 0.9% MINIBAG 100 ML IV SCH ×2 (09:24→21:22)
[2021-08-11] MEDS: SODIUM CHLORIDE FLUSH 0.9% 10 ML SYRINGE IVP SCH ×3 (09:24→21:23)
[2021-08-11] MEDS ORDERED: iohexoL-300 100 ML VIAL ONE (10:59)
[2021-08-11] MEDS ORDERED: iohexoL-300 100 ML VIAL IVP ONE (11:21)
--- NOTE | 2021-08-11 11:32 | CT Report ---
PROCEDURE: CT abdomen and pelvis with contrast INDICATIONS: 26-year-old male with increasing nausea and vomiting, history of pancreatitis with necr osis CONTRAST: IV CONTRAST: Optiray 320 ml: 100 PO CONTRAST: *NO PO CONTRAST TECHNIQUE: After the administration of contrast, 5 mm thick sections acquired from the diaphragms to the sym physis. 5 mm thick coronal and sagittal reformats were acquired. For radiation dose reduction, the following was used: automated exposure control, adjustment of mA and/or kV according to patient size . COMPARISON: 08/08/2021 FINDINGS: Image quality: Excellent. ABDOMEN: Lung bases: Moderate bibasilar pleural effusions associated compressive atelectasis is new from the p rior exam. Heart size normal. Solid organs: Liver is diffusely decreased in attenuation. Gallbladder unremarkable. Spleen is surgic ally absent. Pancreas shows persistent peripancreatic inflammatory change particularly involving the pancreatic tail is similar to the prior exam. Decreased perfusion in the pancreatic tail is also madeline lar. Mild to moderate free fluid in the abdomen and pelvis has increased from the prior. Both kidneys, adrenal glands are unremarkable. Peritoneum and bowel: Diffuse fluid distention of the small bowel measuring up to 4.4 cm without hankins sition. The colon however is decompressed. Nodes and vessels: No retroperitoneal or mesenteric adenopathy by size criteria. Aorta and inferior vena cava are normal in size. Miscellaneous: No ventral hernias. PELVIS: Genitourinary: Bladder wall thickness is normal. Miscellaneous: No inguinal hernias or adenopathy. Bones: No suspicious bony lesions. No vertebral body compression fractures. IMPRESSION: 1. Pancreatic inflammatory changes and hypo-enhancement in the pancreatic tail consistent with pancre atic necrosis is stable from prior. 2. Worsening abdominal ascites and moderate bibasilar pleural effusions, new from prior 3. Diffuse small bowel dilation most likely reflects reactive ileus. Extensive short-term interval fo llow-up to exclude developing obstruction. Reviewed by: Lennox Ware MD on 08/11/2021 10:30 AM [facility] Approved by: Lennox Ware MD on 08/11/2021 10:30 AM [facility] Station ID: [id number]
[2021-08-11] MEDS ORDERED: polyethylene glycoL 3350 17 GM PACKET PO SCH (12:00)
[2021-08-11] MEDS ORDERED: FUROSEMIDE 20 MG/2 ML VIAL IVP STA (12:17)
--- NOTE | 2021-08-11 12:18 | PROVIDER PROGRESS NOTE ---
Assessment/Plan - Problem List (1) Ileus Assessment/Plan: A CT of the abdomen pelvis with contrast was repeated today because of the worsening nausea vomiting and to follow-up of the necrotic part of the pancreas. The pancreas looks the same, there is continued pancreatitis, there is continued small area of necrosis but this is not enlarged. He does have findings of new ascites. He does have an ileus, since fluid was seen in dilated loops of small bowel, which is not seen in his colon, but no transition point was noticed to describe SBO. Will go back to bowel rest and order just ice chips and sips of water to take by mouth, no diet and no oral meds. (2) Pleural effusion Assessment/Plan: This is likely related to being bedridden, Not taking deep breaths and also having positive fluid balance and hypoalbuminemia. We will give albumin IV today and will give IV Lasix and decrease his IV hydration rate (3) Ascites Assessment/Plan: This is likely related to the aggressive IV hydration that he has been getting in a patient with liver disease and hypoalbuminemia. We will give 1 unit of albumin today and IV Lasix today. (4) Pancreatitis Qualifiers: Chronicity: acute Pancreatitis type: alcohol induced Acute pancreatitis complication: unspecified Qualified Code(s): K85.20 - Alcohol induced acute pancreatitis without necrosis or infection Assessment/Plan: This may have been from alcohol abuse or from extreme hypertriglyceridemia. The lipase is improving every day therefore his diet was advanced yesterday however he has been nauseated and vomiting since dinner last night. Will go back to just ice chips and sips of water and stop p.o. meds and stop his other diet. Continue with antiemetics and pain meds as needed (5) Necrosis of pancreas Assessment/Plan: . Unchanged on imaging today and he does not have tenderness of the abdomen. We will continue with empiric antibiotics (6) Hypertriglyceridemia Assessment/Plan: He revealed yesterday that his diet is usually just hard candy and alcohol all day. This is likely the cause of his marked hypertriglyceridemia. He was started on D5 and an insulin drip for aggressive management of lowering the serum triglycerides. The triglycerides were 500 yesterday, 200s today. Overnight his IV insulin drip was stopped. He was to start Lopid and omega-3 today but this will be on hold until after he can tolerate a diet (7) Alcohol withdrawal Assessment/Plan: Tremulous on the first day, he has been mostly lethargic since starting Librium but did not go through florid withdrawal or have alcohol withdrawal seizures as he has had in the past. We are tapering the Librium down to off and a CIWA protocol continues (8) Alcohol abuse Assessment/Plan: He has been given IV thiamine then changed to p.o. thiamine Will transition back to IV thiamine daily since he is strict n.p.o. due to his ileus. Social work saw him for help with alcohol abuse suggestions and he was not interested in quitting alcohol overall (9) Hyponatremia Assessment/Plan: This has improved daily since he was admitted, he was on saline at a high rate, this has been decreased substantially. We will continue with low-dose of IV saline because he is now n.p.o. again. 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 He is therefore at risk of infections with encapsulated organisms. - Current Meds Current Meds: Current Medications Generic Name Dose Route Start Last Admin Trade Name Freq PRN Reason Stop Dose Admin Hydromorphone HCl 1 mg 08/09/21 07:17 08/11/21 11:43 Hydromorphone 1 Mg/Ml Carpuject IVP 1 mg Q2H PRN Administration Pain 8 to 10 Cefepime HCl 2 gm/ Sodium 100 mls @ 200 mls/hr 08/09/21 09:00 08/11/21 10:00 Chloride IV Infused BID HANSEL Infusion Metronidazole 500 mg in 100 mls @ 100 mls/hr 08/09/21 08:00 08/11/21 10:17 Flagyl 500 Mg/100 Ml IV Infused Q8H HANSEL Infusion Lorazepam 1 mg 08/08/21 21:25 08/11/21 06:36 Lorazepam 2 Mg/Ml Vial IVP 1 mg Q30M PRN Administration CIWA >8 Protocol Nicotine 1 patch 08/11/21 09:00 08/11/21 09:24 Nicotine 7 Mg Patch TOP 1 patch DAILY HANSEL Administration Ondansetron HCl 4 mg 08/08/21 21:15 08/11/21 01:45 Ondansetron 4 Mg/2 Ml Vial IVP 4 mg Q6HR PRN Administration Nausea / Vomiting Sodium Chloride 10 ml 08/08/21 21:15 08/11/21 01:45 Sodium Chloride Flush 0.9% 10 Ml Syringe IVP 10 ml PRN PRN Administration NEEDED PER PROVIDER ORDERS Sodium Chloride 10 ml 08/09/21 01:00 08/11/21 09:24 Sodium Chloride Flush 0.9% 10 Ml Syringe IVP 10 ml 0100,[id number],1700 HANSEL Administration - Lab Result Fish Bone Diagrams: 08/11/21 04:06 08/11/21 04:06 - Additional Planning My Orders: My Active Orders 08/11/21 08:00 Echo Transthoracic Complete [ECHO] Routine 08/11/21 12:15 DIET [NPO] [DIET] 08/11/21 12:17 FUROSEMIDE INJ 20mg VIAL [LASIX INJ 20mg VIAL] 20 mg IVP ONCE STA 08/11/21 12:17 Dextrose 5%-0.9% NaCl [D5ns] 1,000 ml IV 60 mls/hr 08/12/21 05:00 CALCIUM, IONIZED ([facility]) [BG] DAILYLAB PHOSPHORUS [CHEM] DAILYLAB 08/13/21 05:00 CALCIUM, IONIZED ([facility]) [BG] DAILYLAB PHOSPHORUS [CHEM] DAILYLAB Subjective - Subjective Patient Reports: Nausea (The patient threw up his dinner last night which was pured diet. This morning even with clear liquids, he is been throwing up several times) Nursing Reports: Shortness of Breath (The nurse noticed that his respiratory rate was higher and he prefers to sit bolt upright today) Objective Vital Signs: Vital Signs - 24 hr 08/10/21 08/10/21 08/10/21 13:00 14:00 15:00 Temperature Heart Rate [ 119 H 115 H 115 H Monitoring electrodes] Respiratory 18 20 18 Rate Blood Pressure Blood Pressure 134/88 H 136/87 H 135/75 H [Right Brachial artery] O2 Saturation 94 94 94 08/10/21 08/10/21 08/10/21 16:00 17:00 18:00 Temperature 37.8 C Heart Rate [ 118 H 112 H 126 H Monitoring electrodes] Respiratory 23 22 21 Rate Blood Pressure Blood Pressure 122/72 135/84 H 148/94 H [Right Brachial artery] O2 Saturation 94 94 08/10/21 08/10/21 08/10/21 19:00 20:00 21:00 Temperature Heart Rate [ 130 H 122 H 112 H Monitoring electrodes] Respiratory 21 22 18 Rate Blood Pressure Blood Pressure 145/104 H 142/95 H 113/65 [Right Brachial artery] O2 Saturation 94 08/10/21 08/10/21 08/10/21 21:15 21:20 21:30 Temperature Heart Rate [ 110 H 112 H 117 H Monitoring electrodes] Respiratory Rate Blood Pressure Blood Pressure 111/70 111/61 132/90 H [Right Brachial artery] O2 Saturation 08/10/21 08/10/21 08/10/21 21:45 22:00 23:00 Temperature Heart Rate [ 117 H 117 H 113 H Monitoring electrodes] Respiratory 31 H 22 Rate Blood Pressure Blood Pressure 134/87 H 122/66 118/63 [Right Brachial artery] O2 Saturation 95 08/10/21 08/11/21 08/11/21 23:25 00:00 01:00 Temperature 37.2 C Heart Rate [ 115 H 114 H Monitoring electrodes] Respiratory 22 20 Rate Blood Pressure Blood Pressure 129/92 H 105/68 [Right Brachial artery] O2 Saturation 08/11/21 08/11/21 08/11/21 01:55 02:00 03:00 Temperature Heart Rate [ 115 H 107 H Monitoring electrodes] Respiratory 21 16 17 Rate Blood Pressure Blood Pressure 130/95 H 122/82 H [Right Brachial artery] O2 Saturation 90 L 94 96 08/11/21 08/11/21 08/11/21 04:00 05:00 06:00 Temperature Heart Rate [ 106 H 102 H 98 Monitoring electrodes] Respiratory 16 23 20 Rate Blood Pressure Blood Pressure 122/82 H 114/63 130/89 H [Right Brachial artery] O2 Saturation 96 93 08/11/21 08/11/21 08/11/21 07:00 08:00 09:00 Temperature 36.8 C Heart Rate [ 108 H 99 108 H Monitoring electrodes] Respiratory 21 23 22 Rate Blood Pressure Blood Pressure 135/97 H 127/89 H 133/82 H [Right Brachial artery] O2 Saturation 95 97 98 08/11/21 08/11/21 09:20 10:00 Temperature Heart Rate [ 97 Monitoring electrodes] Respiratory 20 Rate Blood Pressure 133/82 H Blood Pressure 124/77 [Right Brachial artery] O2 Saturation 92 Oxygen O2 Source Room air I&O (Last 24 Hrs): Intake and Output Totals x24h 08/09/21 08/10/21 08/11/21 23:59 23:59 23:59 Intake Total 6310.675 7189.817 2035.000 Output Total 1500 2275 1400 Balance 4810.675 4914.817 635.000 General: Alert, Oriented x3 HEENT: Mucous membr. moist/pink, Other (icteric) Neck: Supple Neuro: Alert, Non Focal, Other (He appears weak and lethargic) Cardiovascular: Regular rate, No murmurs Respiratory: No respiratory distress, Breath sounds nml Abdomen: Normal bowel sounds, Soft, No tenderness Extremities: No clubbing, No edema, No tenderness/swelling - Results Results: Laboratory Results WBC 11.1 x10^3/uL (4.8-10.8) H 08/11/21 04:06 RBC 3.95 10^6/uL (4.70-6.10) L 08/11/21 04:06 Hgb 13.0 g/dL (14.0-18.0) L 08/11/21 04:06 Hct 37.3 % (42.0-52.0) L 08/11/21 04:06 MCV 94.4 fL (80.0-94.0) H 08/11/21 04:06 MCH 32.9 pg (27.0-31.0) H 08/11/21 04:06 MCHC 34.9 g/dL (32.0-36.0) 08/11/21 04:06 RDW 13.3 % (12.0-15.0) 08/11/21 04:06 Plt Count 69 10^3/uL (130-450) L 08/11/21 04:06 MPV 12.7 fL (7.4-11.4) H 08/11/21 04:06 Neut # (Auto) Not Reportable 08/11/21 04:06 Lymph # (Auto) Not Reportable 08/11/21 04:06 [place] # (Auto) Not Reportable 08/11/21 04:06 Eos # (Auto) Not Reportable 08/11/21 04:06 Baso # (Auto) Not Reportable 08/11/21 04:06 Absolute Nucleated RBC Not Reportable 08/11/21 04:06 Total Counted 100 08/11/21 04:06 Band Neuts % (Manual) 28 % (0-10) H 08/11/21 04:06 Abnorm Lymph % (Manual) 0 % 08/11/21 04:06 Nucleated RBC % Not Reportable 08/11/21 04:06 Neutrophils # (Manual) 9.9 10^3/uL (1.5-6.6) H 08/11/21 04:06 Lymphocytes # (Manual) 0.7 10^3/uL (1.5-3.5) L 08/11/21 04:06 Monocytes # (Manual) 0.6 10^3/uL (0.0-1.0) 08/11/21 04:06 Eosinophils # (Manual) 0.0 10^3/uL (0-0.7) 08/11/21 04:06 Basophils # (Manual) 0.0 10^3/uL (0-0.1) 08/11/21 04:06 Differential Comment MANUAL DIFFERENTIAL 08/11/21 04:06 Platelet Estimate DECREASED (<130,000) (NORMAL) 08/11/21 04:06 RBC Morph Micro Appear NORMAL APPEARANCE (NORMAL) 08/11/21 04:06 VBG pH 7.377 (7.31-7.41) 08/11/21 04:06 Ionized Calcium 1.10 mmol/L (1.15-1.33) L 08/11/21 04:06 Sodium 133 mmol/L (135-145) L 08/11/21 04:06 Potassium 4.0 mmol/L (3.5-5.0) 08/11/21 04:06 Chloride 99 mmol/L (101-111) L 08/11/21 04:06 Carbon Dioxide 26 mmol/L (21-32) 08/11/21 04:06 Anion Gap 8.0 (6-13) 08/11/21 04:06 BUN 10 mg/dL (6-20) 08/11/21 04:06 Creatinine 0.7 mg/dL (0.6-1.2) 08/11/21 04:06 Estimated GFR (MDRD) 135 (>89) 08/11/21 04:06 Glucose 120 mg/dL (70-100) H 08/11/21 04:06 POC Whole Bld Glucose 108 mg/dL (70 - 100) H 08/11/21 08:19 Estimat Average Glucose 100 mg/dL (70-100) 08/10/21 04:30 Hemoglobin A1c % 5.1 % (4.27-6.07) 08/10/21 04:30 Lactic Acid 2.5 mmol/L (0.5-2.2) H 08/09/21 07:26 Calcium 8.0 mg/dL (8.5-10.3) L 08/11/21 04:06 Phosphorus 1.7 mg/dL (2.5-4.6) L 08/11/21 04:06 Magnesium 2.0 mg/dL (1.7-2.8) 08/11/21 04:06 Total Bilirubin 4.1 mg/dL (0.2-1.0) H 08/10/21 04:30 AST 70 IU/L (10-42) H 08/10/21 04:30 ALT 72 IU/L (10-60) H 08/10/21 04:30 Alkaline Phosphatase 93 IU/L (42-121) 08/10/21 04:30 Troponin I High Sens 9.9 ng/L (2.3-19.7) 08/09/21 10:29 Total Protein 5.8 g/dL (6.7-8.2) L 08/10/21 04:30 Albumin 2.6 g/dL (3.2-5.5) L 08/10/21 04:30 Globulin 3.2 g/dL (2.1-4.2) 08/10/21 04:30 Albumin/Globulin Ratio 0.8 (1.0-2.2) L 08/10/21 04:30 Triglycerides 205 mg/dL (-149) H 08/11/21 04:06 Cholesterol 146 mg/dL (-199) 08/11/21 04:06 LDL Cholesterol Direct 43 mg/dL (-129) 08/10/21 04:30 LDL Cholesterol, Calc 97 mg/dL (-129) 08/11/21 04:06 VLDL Cholesterol 41 mg/dL 08/11/21 04:06 HDL Cholesterol 8 mg/dL (60-) L 08/11/21 04:06 LDL/HDL Ratio 12.1 (<3.6) 08/11/21 04:06 dLDL/HDL Ratio 4.8 (<3.6) 08/10/21 04:30 Cholesterol/HDL Ratio 18.3 (<5.0) 08/11/21 04:06 Lipase 93 U/L (22-51) H 08/11/21 04:06 Urine Color DARK YELLOW 08/08/21 18:47 Urine Clarity CLEAR (CLEAR) 08/08/21 18:47 Urine pH 5.5 PH (5.0-7.5) 08/08/21 18:47 Ur Specific [place] >=1.030 (1.002-1.030) H 08/08/21 18:47 Urine Protein TRACE mg/dL (NEGATIVE) 08/08/21 18:47 Urine Glucose (UA) NEGATIVE mg/dL (NEGATIVE) 08/08/21 18:47 Urine Ketones NEGATIVE mg/dL (NEGATIVE) 08/08/21 18:47 Urine Occult Blood NEGATIVE (NEGATIVE) 08/08/21 18:47 Urine Nitrite NEGATIVE (NEGATIVE) 08/08/21 18:47 Urine Bilirubin MODERATE (NEGATIVE) H 08/08/21 18:47 Urine Urobilinogen 1 (NORMAL) E.U./dL (NORMAL) 08/08/21 18:47 Ur Leukocyte Esterase NEGATIVE (NEGATIVE) 08/08/21 18:47 Ur Microscopic Review NOT INDICATED 08/08/21 18:47 Urine Culture Comments NOT INDICATED 08/08/21 18:47 Nasal Adenovirus (PCR) NOT DETECTED 08/08/21 22:54 Nasal B. parapertussis DNA (PCR) NOT DETECTED 08/08/21 22:54 Nasal Coronavir 229E PCR NOT DETECTED 08/08/21 22:54 Nasal Coronavir HKU1 PCR NOT DETECTED 08/08/21 22:54 Nasal Coronavir NL63 PCR NOT DETECTED 08/08/21 22:54 Nasal Coronavir OC43 PCR NOT DETECTED 08/08/21 22:54 Nasal Enterovir/Rhinovir PCR NOT DETECTED 08/08/21 22:54 Nasal Influenza B PCR NOT DETECTED 08/08/21 22:54 Nasal Influenza A PCR NOT DETECTED 08/08/21 22:54 Nasal Parainfluen 1 PCR NOT DETECTED 08/08/21 22:54 Nasal Parainfluen 2 PCR NOT DETECTED 08/08/21 22:54 Nasal Parainfluen 3 PCR NOT DETECTED 08/08/21 22:54 Nasal Parainfluen 4 PCR NOT DETECTED 08/08/21 22:54 Nasal RSV (PCR) NOT DETECTED 08/08/21 22:54 Nasal Screen MRSA (PCR) NEGATIVE (NEGATIVE) 08/08/21 23:30 Nasal B.pertussis DNA PCR NOT DETECTED 08/08/21 22:54 Nasal C.pneumoniae (PCR) NOT DETECTED 08/08/21 22:54 Bladimir Human Metapneumo PCR NOT DETECTED 08/08/21 22:54 Nasal M.pneumoniae (PCR) NOT DETECTED 08/08/21 22:54 Nasal SARS-CoV-2 (PCR) NOT DETECTED 08/08/21 22:54 Ethyl Alcohol 138.7 mg/dL 08/08/21 18:36
[2021-08-11] MEDS ORDERED: chlordiazePOXIDE 25 MG CAPSULE PO SCH (21:00)
[2021-08-12] MEDS: HYDROmorphone 1 MG/ML CARPUJECT IVP PRN ×6 (01:53→23:47)
[2021-08-12] MEDS: LORazepam 2 MG/ML VIAL IVP PRN ×2 (03:16→07:11)
[2021-08-12] MEDS: SODIUM CHLORIDE FLUSH 0.9% 10 ML SYRINGE IVP PRN (03:17)
[2021-08-12 06:27] LABS: CALCIUM, IONIZED 1.13 mmol/L (1.15-1.33); VBG PH 7.434 (7.31-7.41)
[2021-08-12 06:30] LABS: BASOPHILS % (AUTO) 0.5 %; EOSINOPHILS % (AUTO) 1.2 %; HCT - HEMATOCRIT 32.6 % (42.0-52.0); HGB - HEMOGLOBIN 11.4 g/dL (14.0-18.0); LYMPHOCYTES % (AUTO) 10.7 %; MEAN CORPUSCULAR HEMOGLOBIN 33.3 pg (27.0-31.0); MEAN CORPUSCULAR VOLUME 95.3 fL (80.0-94.0); MEAN PLATELET VOLUME 11.2 fL (7.4-11.4); NEUTROPHILS % (AUTO) 74.9 %; PLT - PLATELET COUNT 104 10^3/uL (130-450); RED BLOOD COUNT 3.42 10^6/uL (4.70-6.10); RED CELL DISTRIBUTION WIDTH 14.2 % (12.0-15.0); WHITE BLOOD COUNT 13.4 x10^3/uL (4.8-10.8)
[2021-08-12 06:33] LABS: ABNORMAL LYMPHS % (MANUAL) 0 %
[2021-08-12 06:46] LABS: BAND NEUTROPHILS % (MANUAL) 6 %; DIFFERENTIAL COMMENT MANUAL DIFFERENTIAL; EOSINOPHILS # (MANUAL) 0.3 10^3/uL (0-0.7); LYMPHOCYTES # (MANUAL) 0.8 10^3/uL (1.5-3.5); LYMPHOCYTES % (MANUAL) 6 %; MONOCYTES # (MANUAL) 0.9 10^3/uL (0.0-1.0); NEUTROPHILS # (MANUAL) 11.4 10^3/uL (1.5-6.6); PLATELET ESTIMATE, MANUAL DECREASED (<130,000) (NORMAL); PLATELET MORPHOLOGY NORMAL APPEARANCE (NORMAL); RBC MORPHOLOGY (MULTIPLE) NORMAL APPEARANCE (NORMAL); WBC MORPHOLOGY (MULTIPLE) NORMAL APPEARANCE (NORMAL)
[2021-08-12 06:48] LABS: BUN - BLOOD UREA NITROGEN 10 mg/dL (6-20); CALCIUM 8.1 mg/dL (8.5-10.3); CARBON DIOXIDE - CO2 28 mmol/L (21-32); CHLORIDE 97 mmol/L (101-111); CHOL/HDL RATIO 14.7 (<5.0); CHOLESTEROL 132 mg/dL; CREATININE 0.7 mg/dL (0.6-1.2); GFR - MDRD 135 (>89); GLUCOSE 96 mg/dL (70-100); HDL CHOLESTEROL 9 mg/dL; LDL CHOLESTEROL,CALCULATED 85 mg/dL; LDL/HDL RATIO 9.4 (<3.6); PHOSPHORUS 1.9 mg/dL (2.5-4.6); POTASSIUM 3.6 mmol/L (3.5-5.0); SODIUM 132 mmol/L (135-145); TRIGLYCERIDES 188 mg/dL; VLDL CHOLESTEROL 38 mg/dL
[2021-08-12] MEDS: ONDANSETRON 4 MG/2 ML VIAL IVP PRN (07:11)
--- NOTE | 2021-08-12 08:06 | PROVIDER PROGRESS NOTE ---
Assessment/Plan - Problem List (1) Ileus Assessment/Plan: A CT of the abdomen pelvis with contrast was repeated yesterday because of the worsening nausea vomiting and to follow-up of the necrotic part of the pancreas. The pancreas looked the same, there is continued pancreatitis, there is continued small area of necrosis but this has not enlarged. He did have findings of new ascites. He did also have an ileus, since fluid was seen in dilated loops of small bowel, which is not seen in his colon, but no transition point was noticed to describe SBO. We had to order to go back to bowel rest and order just ice chips and sips of water to take by mouth, no diet and no oral meds. Will add popsicle this sarah maddie. (2) Pleural effusion Assessment/Plan: This is likely related to being bedridden, amd mot taking deep breaths and also having positive fluid balance and hypoalbuminemia. We will give albumin IV and will give IV Lasix and decrease his IV hydration rate (3) Ascites Assessment/Plan: This is likely related to the aggressive IV hydration that he has been getting in a patient with liver disease and hypoalbuminemia. We will give 1 unit of albumin today and IV Lasix today. (4) Pancreatitis Qualifiers: Chronicity: acute Pancreatitis type: alcohol induced Acute pancreatitis complication: unspecified Qualified Code(s): K85.20 - Alcohol induced acute pancreatitis without necrosis or infection Assessment/Plan: This may have been from alcohol abuse or from extreme hypertriglyceridemia. The lipase is improving every day therefore his diet was advanced however he became nauseated and vomited. Will go back to just ice chips and sips of water and stop p.o. meds and stop his other diet. Continue with antiemetics and pain meds as needed (5) Necrosis of pancreas Assessment/Plan: Unchanged on imaging and he does not have tenderness of the abdomen. We will continue with empiric antibiotics (6) Hypertriglyceridemia Assessment/Plan: He revealed that his diet is usually just hard candy and alcohol all day. This is likely the cause of his marked hypertriglyceridemia. He was started on D5 and an insulin drip for aggressive management of lowering the serum triglycerides when in ICU. The triglycerides have improved substantially. Insulin drip stopped and he can be moved out of ICU today. He was to start Lopid and omega-3 today but this will be on hold until after he can tolerate a diet. (7) Alcohol withdrawal Assessment/Plan: Tremulous on the first day, he has been mostly lethargic since starting Librium but did not go through [place] withdrawal or have alcohol withdrawal seizures as he has had in the past. We are tapering the Librium down to off and a CIWA protocol continue (8) Alcohol abuse Assessment/Plan: He has been given IV thiamine then changed to p.o. thiamine Will transition back to IV thiamine daily since he is strict n.p.o. due to his ileus. Social work saw him for help with alcohol abuse suggestions and he was not interested in quitting alcohol overall (9) Hyponatremia Assessment/Plan: This has improved daily since he was admitted, he was on saline at a high rate, this has been decreased substantially. We will continue with low-dose of IV saline because he is now n.p.o. again. Follow BMP daily (10) Abnormal EKG Assessment/Plan: Echo was done to confirm if there are any wall motion abnormalities, and there were none; he has a normal LVEF amd chamber sizes. (11) Bicuspid aortic valve Assessment/Plan: This was found on Echo done here, he also has an aortic root which is upper limit of normal in size at 4.0 cm. This information will be relayed to him for the family members who may want to be checked for having a bicuspid valve, since this is genetic. 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 He is therefore at risk of infections with encapsulated organisms. - Current Meds Current Meds: Current Medications Generic Name Dose Route Start Last Admin Trade Name Freq PRN Reason Stop Dose Admin Hydromorphone HCl 1 mg 08/09/21 07:17 08/12/21 01:53 Hydromorphone 1 Mg/Ml Carpuject IVP 1 mg Q2H PRN Administration Pain 8 to 10 Cefepime HCl 2 gm/ Sodium 100 mls @ 200 mls/hr 08/09/21 09:00 08/11/21 22:03 Chloride IV Infused BID HANSEL Infusion Metronidazole 500 mg in 100 mls @ 100 mls/hr 08/09/21 08:00 08/12/21 00:30 Flagyl 500 Mg/100 Ml IV Infused Q8H HANSEL Infusion Dextrose/Sodium Chloride 1,000 mls @ 60 mls/hr 08/11/21 12:17 08/12/21 06:00 D5ns IV 60 mls/hr .[id number] HANSEL Infusion Lorazepam 1 mg 08/08/21 21:25 08/12/21 07:11 Lorazepam 2 Mg/Ml Vial IVP 1 mg Q30M PRN Administration CIWA >8 Protocol Nicotine 1 patch 08/11/21 09:00 08/11/21 09:24 Nicotine 7 Mg Patch TOP 1 patch DAILY HANSEL Administration Ondansetron HCl 4 mg 08/08/21 21:15 08/12/21 07:11 Ondansetron 4 Mg/2 Ml Vial IVP 4 mg Q6HR PRN Administration Nausea / Vomiting Sodium Chloride 10 ml 08/08/21 21:15 08/12/21 03:17 Sodium Chloride Flush 0.9% 10 Ml Syringe IVP 10 ml PRN PRN Administration NEEDED PER PROVIDER ORDERS Sodium Chloride 10 ml 08/09/21 01:00 08/11/21 21:23 Sodium Chloride Flush 0.9% 10 Ml Syringe IVP 10 ml 0100,[id number],1700 HANSEL Administration - Lab Result Fish Bone Diagrams: 08/13/21 05:15 08/13/21 05:15 - Additional Planning My Orders: My Active Orders 08/11/21 08:00 Echo Transthoracic Complete [ECHO] Routine 08/11/21 12:15 DIET [NPO] [DIET] 08/11/21 12:17 Dextrose 5%-0.9% NaCl [D5ns] 1,000 ml IV 60 mls/hr 08/11/21 14:05 Blood Glucose POC [RC] PRN 08/11/21 14:26 IS [Incentive Spirometry - RT] [RC] TID 08/11/21 21:50 RT [Oxygen Therapy] [RC] .PRN 08/12/21 08:30 Potassium Phosphate 15 mmol Sodium Chloride 0.9% [Normal Saline 0.9%] 250 ml IV ONCE 08/13/21 05:00 CALCIUM, IONIZED ([facility]) [BG] DAILYLAB MAGNESIUM [CHEM] DAILYLAB PHOSPHORUS [CHEM] DAILYLAB 08/14/21 05:00 MAGNESIUM [CHEM] DAILYLAB Subjective - Subjective Patient Reports: Other (Still has nausea, less abd pain, is thirsty and hungry) Objective Vital Signs: Vital Signs - 24 hr 1208/11/21 08/11/21 09:00 09:20 10:00 Temperature 36.8 C Heart Rate [ 108 H 97 Monitoring electrodes] Respiratory 22 20 Rate Blood Pressure 133/82 H Blood Pressure 133/82 H 124/77 [Right Brachial artery] O2 Saturation 98 92 08/11/21 08/11/21 08/11/21 11:00 12:00 13:00 Temperature 37.4 C Heart Rate [ 107 H 102 H 104 H Monitoring electrodes] Respiratory 25 H 26 H 24 Rate Blood Pressure Blood Pressure 124/77 139/96 H 152/92 H [Right Brachial artery] O2 Saturation 90 L 90 L 93 08/11/21 08/11/21 08/11/21 14:05 14:58 16:00 Temperature 36.9 C Heart Rate [ 105 H 113 H 115 H Monitoring electrodes] Respiratory 22 26 H 27 H Rate Blood Pressure Blood Pressure 136/92 H 140/79 H 136/94 H [Right Brachial artery] O2 Saturation 90 L 92 91 L 08/11/21 08/11/21 08/11/21 17:00 18:00 19:00 Temperature Heart Rate [ 103 H 102 H 108 H Monitoring electrodes] Respiratory 22 20 25 H Rate Blood Pressure Blood Pressure 127/85 H 121/54 L 130/88 H [Right Brachial artery] O2 Saturation 93 94 90 L 08/11/21 08/11/21 08/11/21 20:00 20:14 21:38 Temperature 36.9 C Heart Rate [ 113 H 105 H Monitoring electrodes] Respiratory 24 25 H 23 Rate Blood Pressure Blood Pressure 137/79 H 141/87 H [Right Brachial artery] O2 Saturation 90 L 93 08/11/21 08/11/21 08/12/21 22:00 23:32 00:00 Temperature 37.0 C Heart Rate [ 108 H 101 H 96 Monitoring electrodes] Respiratory 26 H 15 20 Rate Blood Pressure Blood Pressure 116/99 H 140/103 H 135/90 H [Right Brachial artery] O2 Saturation 93 95 08/12/21 08/12/21 08/12/21 01:00 02:00 03:00 Temperature Heart Rate [ 96 94 98 Monitoring electrodes] Respiratory 21 22 16 Rate Blood Pressure Blood Pressure 128/83 H 121/98 H 127/61 [Right Brachial artery] O2 Saturation 96 96 88 L 08/12/21 08/12/21 08/12/21 03:18 04:00 05:00 Temperature Heart Rate [ 97 97 Monitoring electrodes] Respiratory 17 20 18 Rate Blood Pressure Blood Pressure 137/90 H 124/63 [Right Brachial artery] O2 Saturation 96 98 97 08/12/21 08/12/21 06:00 07:00 Temperature Heart Rate [ 91 101 H Monitoring electrodes] Respiratory 22 21 Rate Blood Pressure Blood Pressure 110/78 [Right Brachial artery] O2 Saturation 93 Oxygen O2 Source Nasal cannula I&O (Last 24 Hrs): Intake and Output Totals x24h 08/10/21 08/11/21 08/12/21 23:59 23:59 23:59 Intake Total 7189.817 3965.167 670 Output Total 2275 3150 550 Balance 4914.817 815.167 120 General: Alert, Oriented x3, Other (Appears tired) HEENT: Mucous membr. moist/pink Neck: Supple, No JVD Neuro: Alert, Non Focal, Other (No tremor) Cardiovascular: Regular rate, No murmurs Respiratory: Breath sounds nml (anteriorly), Other (RR elevated) Abdomen: Normal bowel sounds, Soft, No tenderness Extremities: No edema, No tenderness/swelling - Results Results: Laboratory Results WBC 13.4 x10^3/uL (4.8-10.8) H 08/12/21 06:14 RBC 3.42 10^6/uL (4.70-6.10) L 08/12/21 06:14 Hgb 11.4 g/dL (14.0-18.0) L 08/12/21 06:14 Hct 32.6 % (42.0-52.0) L 08/12/21 06:14 MCV 95.3 fL (80.0-94.0) H 08/12/21 06:14 MCH 33.3 pg (27.0-31.0) H 08/12/21 06:14 MCHC 35.0 g/dL (32.0-36.0) 08/12/21 06:14 RDW 14.2 % (12.0-15.0) 08/12/21 06:14 Plt Count 104 10^3/uL (130-450) L 08/12/21 06:14 MPV 11.2 fL (7.4-11.4) 08/12/21 06:14 Neut # (Auto) Not Reportable 08/12/21 06:14 Lymph # (Auto) Not Reportable 08/12/21 06:14 [place] # (Auto) Not Reportable 08/12/21 06:14 Eos # (Auto) Not Reportable 08/12/21 06:14 Baso # (Auto) Not Reportable 08/12/21 06:14 Absolute Nucleated RBC Not Reportable 08/12/21 06:14 Total Counted 100 08/12/21 06:14 Band Neuts % (Manual) 6 % (0-10) 08/12/21 06:14 Abnorm Lymph % (Manual) 0 % 08/12/21 06:14 Nucleated RBC % Not Reportable 08/12/21 06:14 Neutrophils # (Manual) 11.4 10^3/uL (1.5-6.6) H 08/12/21 06:14 Lymphocytes # (Manual) 0.8 10^3/uL (1.5-3.5) L 08/12/21 06:14 Monocytes # (Manual) 0.9 10^3/uL (0.0-1.0) 08/12/21 06:14 Eosinophils # (Manual) 0.3 10^3/uL (0-0.7) 08/12/21 06:14 Basophils # (Manual) 0.0 10^3/uL (0-0.1) 08/12/21 06:14 Differential Comment MANUAL DIFFERENTIAL 08/12/21 06:14 WBC Morphology NORMAL APPEARANCE (NORMAL) 08/12/21 06:14 Platelet Estimate DECREASED (<130,000) (NORMAL) 08/12/21 06:14 Platelet Morphology NORMAL APPEARANCE (NORMAL) 08/12/21 06:14 RBC Morph Micro Appear NORMAL APPEARANCE (NORMAL) 08/12/21 06:14 VBG pH 7.434 (7.31-7.41) H 08/12/21 06:14 Ionized Calcium 1.13 mmol/L (1.15-1.33) L 08/12/21 06:14 Sodium 132 mmol/L (135-145) L 08/12/21 06:14 Potassium 3.6 mmol/L (3.5-5.0) 08/12/21 06:14 Chloride 97 mmol/L (101-111) L 08/12/21 06:14 Carbon Dioxide 28 mmol/L (21-32) 08/12/21 06:14 Anion Gap 7.0 (6-13) 08/12/21 06:14 BUN 10 mg/dL (6-20) 08/12/21 06:14 Creatinine 0.7 mg/dL (0.6-1.2) 08/12/21 06:14 Estimated GFR (MDRD) 135 (>89) 08/12/21 06:14 Glucose 96 mg/dL (70-100) 08/12/21 06:14 POC Whole Bld Glucose 106 mg/dL (70 - 100) H 08/11/21 23:27 Estimat Average Glucose 100 mg/dL (70-100) 08/10/21 04:30 Hemoglobin A1c % 5.1 % (4.27-6.07) 08/10/21 04:30 Lactic Acid 2.5 mmol/L (0.5-2.2) H 08/09/21 07:26 Calcium 8.1 mg/dL (8.5-10.3) L 08/12/21 06:14 Phosphorus 1.9 mg/dL (2.5-4.6) L 08/12/21 06:14 Magnesium 2.0 mg/dL (1.7-2.8) 08/12/21 06:14 Total Bilirubin 4.1 mg/dL (0.2-1.0) H 08/10/21 04:30 AST 70 IU/L (10-42) H 08/10/21 04:30 ALT 72 IU/L (10-60) H 08/10/21 04:30 Alkaline Phosphatase 93 IU/L (42-121) 08/10/21 04:30 Troponin I High Sens 9.9 ng/L (2.3-19.7) 08/09/21 10:29 Total Protein 5.8 g/dL (6.7-8.2) L 08/10/21 04:30 Albumin 2.6 g/dL (3.2-5.5) L 08/10/21 04:30 Globulin 3.2 g/dL (2.1-4.2) 08/10/21 04:30 Albumin/Globulin Ratio 0.8 (1.0-2.2) L 08/10/21 04:30 Triglycerides 188 mg/dL (-149) H 08/12/21 06:14 Cholesterol 132 mg/dL (-199) 08/12/21 06:14 LDL Cholesterol Direct 43 mg/dL (-129) 08/10/21 04:30 LDL Cholesterol, Calc 85 mg/dL (-129) 08/12/21 06:14 VLDL Cholesterol 38 mg/dL 08/12/21 06:14 HDL Cholesterol 9 mg/dL (60-) L 08/12/21 06:14 LDL/HDL Ratio 9.4 (<3.6) 08/12/21 06:14 dLDL/HDL Ratio 4.8 (<3.6) 08/10/21 04:30 Cholesterol/HDL Ratio 14.7 (<5.0) 08/12/21 06:14 Lipase 143 U/L (22-51) H 08/12/21 06:14 Urine Color DARK YELLOW 08/08/21 18:47 Urine Clarity CLEAR (CLEAR) 08/08/21 18:47 Urine pH 5.5 PH (5.0-7.5) 08/08/21 18:47 Ur Specific [place] >=1.030 (1.002-1.030) H 08/08/21 18:47 Urine Protein TRACE mg/dL (NEGATIVE) 08/08/21 18:47 Urine Glucose (UA) NEGATIVE mg/dL (NEGATIVE) 08/08/21 18:47 Urine Ketones NEGATIVE mg/dL (NEGATIVE) 08/08/21 18:47 Urine Occult Blood NEGATIVE (NEGATIVE) 08/08/21 18:47 Urine Nitrite NEGATIVE (NEGATIVE) 08/08/21 18:47 Urine Bilirubin MODERATE (NEGATIVE) H 08/08/21 18:47 Urine Urobilinogen 1 (NORMAL) E.U./dL (NORMAL) 08/08/21 18:47 Ur Leukocyte Esterase NEGATIVE (NEGATIVE) 08/08/21 18:47 Ur Microscopic Review NOT INDICATED 08/08/21 18:47 Urine Culture Comments NOT INDICATED 08/08/21 18:47 Nasal Adenovirus (PCR) NOT DETECTED 08/08/21 22:54 Nasal B. parapertussis DNA (PCR) NOT DETECTED 08/08/21 22:54 Nasal Coronavir 229E PCR NOT DETECTED 08/08/21 22:54 Nasal Coronavir HKU1 PCR NOT DETECTED 08/08/21 22:54 Nasal Coronavir NL63 PCR NOT DETECTED 08/08/21 22:54 Nasal Coronavir OC43 PCR NOT DETECTED 08/08/21 22:54 Nasal Enterovir/Rhinovir PCR NOT DETECTED 08/08/21 22:54 Nasal Influenza B PCR NOT DETECTED 08/08/21 22:54 Nasal Influenza A PCR NOT DETECTED 08/08/21 22:54 Nasal Parainfluen 1 PCR NOT DETECTED 08/08/21 22:54 Nasal Parainfluen 2 PCR NOT DETECTED 08/08/21 22:54 Nasal Parainfluen 3 PCR NOT DETECTED 08/08/21 22:54 Nasal Parainfluen 4 PCR NOT DETECTED 08/08/21 22:54 Nasal RSV (PCR) NOT DETECTED 08/08/21 22:54 Nasal Screen MRSA (PCR) NEGATIVE (NEGATIVE) 08/08/21 23:30 Nasal B.pertussis DNA PCR NOT DETECTED 08/08/21 22:54 Nasal C.pneumoniae (PCR) NOT DETECTED 08/08/21 22:54 [place] Human Metapneumo PCR NOT DETECTED 08/08/21 22:54 Nasal M.pneumoniae (PCR) NOT DETECTED 08/08/21 22:54 Nasal SARS-CoV-2 (PCR) NOT DETECTED 08/08/21 22:54 Ethyl Alcohol 138.7 mg/dL 08/08/21 18:36
[2021-08-12] MEDS ORDERED: POTASSIUM PHOSPHATE 15 MMOL in SODIUM CHLORIDE 0.9% 250 ML IV ONE (08:30)
[2021-08-12] MEDS: metroNIDAZOLE 500 MG/100 ML 500 MG/100 ML BAG IV SCH ×3 (08:45→23:54)
[2021-08-12] MEDS: CEFEPIME 2 GM in SODIUM CHLORIDE 0.9% MINIBAG 100 ML IV SCH ×2 (08:46→20:40)
[2021-08-12] MEDS: NICOTINE 7 MG PATCH TOP SCH (08:46)
[2021-08-12] MEDS: SODIUM CHLORIDE FLUSH 0.9% 10 ML SYRINGE IVP SCH ×3 (08:47→23:47)
[2021-08-12 09:16] LABS: ALBUMIN 2.7 g/dL (3.2-5.5); BILIRUBIN,DIRECT 1.7 mg/dL (0.1-0.5); BILIRUBIN,TOTAL 3.4 mg/dL (0.2-1.0); TOTAL PROTEIN 5.9 g/dL (6.7-8.2)
[2021-08-12] MEDS: THIAMINE INJ 100 MG in SODIUM CHLORIDE 0.9% 50 ML IV SCH (13:14)
[2021-08-12] MEDS: DEXTROSE 5%-0.9% NACL 1,000 ML IV SCH (15:12)
[2021-08-13] MEDS: HYDROmorphone 1 MG/ML CARPUJECT IVP PRN ×4 (02:36→16:35)
[2021-08-13 06:16] LABS: BASOPHILS % (AUTO) 0.7 %; EOSINOPHILS % (AUTO) 1.1 %; HCT - HEMATOCRIT 31.1 % (42.0-52.0); HGB - HEMOGLOBIN 10.7 g/dL (14.0-18.0); LYMPHOCYTES % (AUTO) 13.4 %; MEAN CORPUSCULAR HEMOGLOBIN 32.8 pg (27.0-31.0); MEAN CORPUSCULAR HGB CONC 34.4 g/dL (32.0-36.0); MEAN CORPUSCULAR VOLUME 95.4 fL (80.0-94.0); MEAN PLATELET VOLUME 11.5 fL (7.4-11.4); MONOCYTES % (AUTO) 19.7 %; NEUTROPHILS % (AUTO) 61.5 %; PLT - PLATELET COUNT 122 10^3/uL (130-450); RED BLOOD COUNT 3.26 10^6/uL (4.70-6.10); RED CELL DISTRIBUTION WIDTH 14.3 % (12.0-15.0); WHITE BLOOD COUNT 15.1 x10^3/uL (4.8-10.8)
[2021-08-13 06:27] LABS: ALBUMIN 2.6 g/dL (3.2-5.5); ALBUMIN/GLOBULIN RATIO 0.8 (1.0-2.2); BILIRUBIN,TOTAL 2.2 mg/dL (0.2-1.0); CALCIUM 8.1 mg/dL (8.5-10.3); CREATININE 0.6 mg/dL (0.6-1.2); PHOSPHORUS 2.4 mg/dL (2.5-4.6); TOTAL PROTEIN 5.9 g/dL (6.7-8.2)
[2021-08-13 06:30] LABS: ABNORMAL LYMPHS % (MANUAL) 0 %
[2021-08-13 06:47] LABS: CALCIUM, IONIZED 1.14 mmol/L (1.15-1.33); VBG PH 7.373 (7.31-7.41)
[2021-08-13 06:51] LABS: FOLATE 8.41 ng/mL (5.90 - >24.8)
[2021-08-13 07:07] LABS: BAND NEUTROPHILS % (MANUAL) 18 %; LYMPHOCYTES # (MANUAL) 2.1 10^3/uL (1.5-3.5); LYMPHOCYTES % (MANUAL) 13 %; MONOCYTES # (MANUAL) 2.4 10^3/uL (0.0-1.0); NEUTROPHILS # (MANUAL) 10.6 10^3/uL (1.5-6.6); REACTIVE LYMPHS % (MANUAL) 1 %
[2021-08-13 07:14] LABS: DIFFERENTIAL COMMENT MANUAL DIFFERENTIAL; PLATELET ESTIMATE, MANUAL NORMAL (130-450,000) (NORMAL); PLATELET MORPHOLOGY NORMAL APPEARANCE (NORMAL)
[2021-08-13] MEDS ORDERED: DEXTROSE 5%-0.9% NACL 1,000 ML IV SCH (07:55)
[2021-08-13] MEDS: metroNIDAZOLE 500 MG/100 ML 500 MG/100 ML BAG IV SCH ×3 (08:08→23:44)
[2021-08-13] MEDS: NICOTINE 7 MG PATCH TOP SCH (08:50)
[2021-08-13] MEDS: SODIUM CHLORIDE FLUSH 0.9% 10 ML SYRINGE IVP SCH ×2 (08:50→15:44)
[2021-08-13] MEDS: CEFEPIME 2 GM in SODIUM CHLORIDE 0.9% MINIBAG 100 ML IV SCH ×2 (09:42→20:53)
[2021-08-13] MEDS ORDERED: THIAMINE 100 MG/1 ML 2 ML MDV ONE (10:20)
[2021-08-13] MEDS: THIAMINE INJ 100 MG in SODIUM CHLORIDE 0.9% 50 ML IV SCH (10:36)
[2021-08-13] MEDS: POTASSIUM CHLOR 10 MEQ/100 ML 10 MEQ/100 ML BAG IV SCH ×4 (11:19→15:44)
[2021-08-13] MEDS ORDERED: METOCLOPRAMIDE 10 MG/2 ML VIAL IVP STA (12:45)
[2021-08-13] MEDS: SODIUM CHLORIDE FLUSH 0.9% 10 ML SYRINGE IVP PRN (13:00)
[2021-08-13] MEDS: LORazepam 2 MG/ML VIAL IVP PRN (14:22)
[2021-08-13] MEDS: ONDANSETRON 4 MG/2 ML VIAL IVP PRN (15:32)
--- NOTE | 2021-08-13 16:47 | PROVIDER PROGRESS NOTE ---
Assessment/Plan - Problem List (1) Pancreatitis Qualifiers: Chronicity: acute Pancreatitis type: alcohol induced Acute pancreatitis complication: unspecified Qualified Code(s): K85.20 - Alcohol induced acute pancreatitis without necrosis or infection Assessment/Plan: His lipase is improving every day. His nausea and vomiting are improving every day. His abdominal pain is significantly better since admission. We will try Reglan for his nausea, Otherwise as needed Compazine or Zofran. Pain meds are prn narcotics, Tylenol was stopped due to liver disease. Will advance the diet to clear liquids and then several meals with pured diet (2) Necrosis of pancreas Assessment/Plan: White blood count had worsened several days ago, leading to the repeat CT scan that was done. The same necrosis was seen. Continue with empiric antibiotics. (3) Ascites Assessment/Plan: Was seen on CT scan of the abdomen. We will monitor (4) Pleural effusion Assessment/Plan: This is likely related to low albumin and our aggressive IV crystalloid infusions while he was on insulin drip. He is getting intermittent IV albumin plus IV Lasix. His dyspnea is better today. Will monitor (5) Hypertriglyceridemia Assessment/Plan: He is off his insulin drip and out of the ICU since yesterday. His triglycerides are now measurable. When he can tolerate p.o. diet definitely, will restart meds for high triglycerides such as Lopid. Will request nutrition consult to review his poor dietary habits (he ate candy and drink alcohol all day, and only had 1 significant meal per day with protein) (6) Alcohol abuse Assessment/Plan: He was switched back to IV thiamine when the ileus developed. If he is eating well today, will resume his thiamine p.o. tomorrow. He was again seen by social work to offer him resources regarding alcohol abuse and he declined these again (7) Hyponatremia Assessment/Plan: Improving daily. Will decrease his iv fluids to TKO Follow BMP daily (8) Abnormal EKG Assessment/Plan: Echo showed normal LVEF (9) Bicuspid aortic valve Assessment/Plan: This was found on Echo this admission. Will let him know to inform family, since this Dx is genetic (10) S/P splenectomy Assessment/Plan: As per Hx (11) Ileus Assessment/Plan: Resolved, he had 2 BMs, semi-formed. He wants to try advancing his diet (12) Alcohol withdrawal Assessment/Plan: Resolved, he is off scheduled Librium, CIWA protocol continues prn. - Current Meds Current Meds: Current Medications Generic Name Dose Route Start Last Admin Trade Name Carlton PRN Reason Stop Dose Admin Hydromorphone HCl 1 mg 08/09/21 07:17 08/13/21 16:35 Hydromorphone 1 Mg/Ml Carpuject IVP 1 mg Q2H PRN Administration Pain 8 to 10 Cefepime HCl 2 gm/ Sodium 100 mls @ 200 mls/hr 08/09/21 09:00 08/13/21 10:20 Chloride IV Infused BID HANSEL Infusion Metronidazole 500 mg in 100 mls @ 100 mls/hr 08/09/21 08:00 08/13/21 15:44 Flagyl 500 Mg/100 Ml IV 100 mls/hr Q8H HANSEL Administration Thiamine HCl 100 mg/ Sodium 51 mls @ 100 mls/hr 08/12/21 11:00 08/13/21 11:10 Chloride IV Infused DAILY HANSEL Infusion Dextrose/Sodium Chloride 1,000 mls @ 0 mls/hr 08/13/21 07:55 08/13/21 11:20 D5ns IV 30 mls/hr .Q0M HANSEL Administration TKO Lorazepam 1 mg 08/08/21 21:25 08/13/21 14:22 Lorazepam 2 Mg/Ml Vial IVP 1 mg Q30M PRN Administration CIWA >8 Protocol Nicotine 1 patch 08/11/21 09:00 08/13/21 08:50 Nicotine 7 Mg Patch TOP 1 patch DAILY HANSEL Administration Ondansetron HCl 4 mg 08/08/21 21:15 08/13/21 15:32 Ondansetron 4 Mg/2 Ml Vial IVP 4 mg Q6HR PRN Administration Nausea / Vomiting Sodium Chloride 10 ml 08/08/21 21:15 08/13/21 13:00 Sodium Chloride Flush 0.9% 10 Ml Syringe IVP 10 ml PRN PRN Administration NEEDED PER PROVIDER ORDERS Sodium Chloride 10 ml 08/09/21 01:00 08/13/21 15:44 Sodium Chloride Flush 0.9% 10 Ml Syringe IVP 10 ml 0100,0900,1700 HANSEL Administration - Lab Result Fish Bone Diagrams: 08/13/21 05:15 08/13/21 05:15 - Additional Planning My Orders: My Active Orders 08/13/21 07:55 Dextrose 5%-0.9% NaCl [D5ns] 1,000 ml IV TKO 08/13/21 Lunch DIET [Dysphagia - Puree] [DIET] 08/14/21 05:00 CMP [COMPREHENSIVE METABOLIC PANEL] [CHEM] DAILYLAB MAGNESIUM [CHEM] DAILYLAB 08/15/21 05:00 CMP [COMPREHENSIVE METABOLIC PANEL] [CHEM] DAILYLAB Subjective - Subjective Patient Reports: Feeling Better (Nausea is present but mild and no abd pain today) Nursing Reports: Other (Had 2 BMs, soft and semi-formed) Objective Vital Signs: Vital Signs - 24 hr 08/12/21 08/13/21 08/13/21 20:43 01:10 04:39 Temperature 37.3 C 37.6 C 36.8 C Heart Rate [ 104 H 120 H 102 H Brachial] Respiratory 20 16 18 Rate Blood Pressure 152/104 H 149/94 H 148/98 H [Right Brachial artery] O2 Saturation 92 87 L 95 08/13/21 08/13/21 08/13/21 08:00 08:09 12:36 Temperature 37.2 C 37.1 C Heart Rate [ 97 97 Brachial] Respiratory 18 18 Rate Blood Pressure 142/97 H 133/77 H [Right Brachial artery] O2 Saturation 94 97 94 08/13/21 16:36 Temperature 37.0 C Heart Rate [ 94 Brachial] Respiratory 18 Rate Blood Pressure 125/68 [Right Brachial artery] O2 Saturation 95 Oxygen O2 Source Nasal cannula I&O (Last 24 Hrs): Intake and Output Totals x24h 08/11/21 08/12/21 08/13/21 23:59 23:59 23:59 Intake Total 3965.167 3224.00 2108.000 Output Total 3150 750 2350 Balance 693.761 5973.00 -242.000 General: Alert, Oriented x3 HEENT: Mucous membr. moist/pink, Other (He appears tired (said he didn't sleep all night) Neuro: Alert, Non Focal, Other (No tremor) Cardiovascular: Regular rate Respiratory: No respiratory distress, Breath sounds nml Abdomen: Normal bowel sounds, Soft Extremities: No clubbing, No edema, No tenderness/swelling - Results Results: Laboratory Results WBC 15.1 x10^3/uL (4.8-10.8) H 08/13/21 05:15 RBC 3.26 10^6/uL (4.70-6.10) L 08/13/21 05:15 Hgb 10.7 g/dL (14.0-18.0) L 08/13/21 05:15 Hct 31.1 % (42.0-52.0) L 08/13/21 05:15 MCV 95.4 fL (80.0-94.0) H 08/13/21 05:15 MCH 32.8 pg (27.0-31.0) H 08/13/21 05:15 MCHC 34.4 g/dL (32.0-36.0) 08/13/21 05:15 RDW 14.3 % (12.0-15.0) 08/13/21 05:15 Plt Count 122 10^3/uL (130-450) L 08/13/21 05:15 MPV 11.5 fL (7.4-11.4) H 08/13/21 05:15 Neut # (Auto) Not Reportable 08/13/21 05:15 Lymph # (Auto) Not Reportable 08/13/21 05:15 [place] # (Auto) Not Reportable 08/13/21 05:15 Eos # (Auto) Not Reportable 08/13/21 05:15 Baso # (Auto) Not Reportable 08/13/21 05:15 Absolute Nucleated RBC Not Reportable 08/13/21 05:15 Total Counted 100 08/13/21 05:15 Band Neuts % (Manual) 18 % (0-10) H 08/13/21 05:15 Reactive Lymphs % (Man) 1 % 08/13/21 05:15 Abnorm Lymph % (Manual) 0 % 08/13/21 05:15 Nucleated RBC % Not Reportable 08/13/21 05:15 Neutrophils # (Manual) 10.6 10^3/uL (1.5-6.6) H 08/13/21 05:15 Lymphocytes # (Manual) 2.1 10^3/uL (1.5-3.5) 08/13/21 05:15 Monocytes # (Manual) 2.4 10^3/uL (0.0-1.0) H 08/13/21 05:15 Eosinophils # (Manual) 0.0 10^3/uL (0-0.7) 08/13/21 05:15 Basophils # (Manual) 0.0 10^3/uL (0-0.1) 08/13/21 05:15 Differential Comment MANUAL DIFFERENTIAL 08/13/21 05:15 WBC Morphology NORMAL APPEARANCE (NORMAL) 08/12/21 06:14 Platelet Estimate NORMAL (130-450,000) (NORMAL) 08/13/21 05:15 Platelet Morphology NORMAL APPEARANCE (NORMAL) 08/13/21 05:15 RBC Morph Micro Appear 1+ POLYCHROMASIA (NORMAL) 2+ TARGET CELLS (NORMAL) 3+ STOMATOCYTES (NORMAL) 2+ HYPOCHROMASIA (NORMAL) 08/13/21 05:15 RBC Morph Micro Appear 1+ POLYCHROMASIA (NORMAL) 2+ TARGET CELLS (NORMAL) 3+ STOMATOCYTES (NORMAL) 2+ HYPOCHROMASIA (NORMAL) 08/13/21 05:15 RBC Morph Micro Appear 1+ POLYCHROMASIA (NORMAL) 2+ TARGET CELLS (NORMAL) 3+ STOMATOCYTES (NORMAL) 2+ HYPOCHROMASIA (NORMAL) 08/13/21 05:15 RBC Morph Micro Appear 1+ POLYCHROMASIA (NORMAL) 2+ TARGET CELLS (NORMAL) 3+ STOMATOCYTES (NORMAL) 2+ HYPOCHROMASIA (NORMAL) 08/13/21 05:15 VBG pH 7.373 (7.31-7.41) 08/13/21 05:15 Ionized Calcium 1.14 mmol/L (1.15-1.33) L 08/13/21 05:15 Sodium 133 mmol/L (135-145) L 08/13/21 05:15 Potassium 3.0 mmol/L (3.5-5.0) L 08/13/21 05:15 Chloride 97 mmol/L (101-111) L 08/13/21 05:15 Carbon Dioxide 29 mmol/L (21-32) 08/13/21 05:15 Anion Gap 7.0 (6-13) 08/13/21 05:15 BUN 5 mg/dL (6-20) L 08/13/21 05:15 Creatinine 0.6 mg/dL (0.6-1.2) 08/13/21 05:15 Estimated GFR (MDRD) 162 (>89) 08/13/21 05:15 Glucose 110 mg/dL (70-100) H 08/13/21 05:15 POC Whole Bld Glucose 105 mg/dL (70 - 100) H 08/13/21 11:25 Estimat Average Glucose 100 mg/dL (70-100) 08/10/21 04:30 Hemoglobin A1c % 5.1 % (4.27-6.07) 08/10/21 04:30 Lactic Acid 2.5 mmol/L (0.5-2.2) H 08/09/21 07:26 Calcium 8.1 mg/dL (8.5-10.3) L 08/13/21 05:15 Phosphorus 2.4 mg/dL (2.5-4.6) L 08/13/21 05:15 Magnesium 2.0 mg/dL (1.7-2.8) 08/13/21 05:15 Total Bilirubin 2.2 mg/dL (0.2-1.0) H 08/13/21 05:15 Direct Bilirubin 1.0 mg/dL (0.1-0.5) H 08/13/21 09:21 AST 27 IU/L (10-42) 08/13/21 05:15 ALT 33 IU/L (10-60) 08/13/21 05:15 Alkaline Phosphatase 57 IU/L (42-121) 08/13/21 05:15 Troponin I High Sens 9.9 ng/L (2.3-19.7) 08/09/21 10:29 Total Protein 5.9 g/dL (6.7-8.2) L 08/13/21 05:15 Albumin 2.6 g/dL (3.2-5.5) L 08/13/21 05:15 Globulin 3.3 g/dL (2.1-4.2) 08/13/21 05:15 Albumin/Globulin Ratio 0.8 (1.0-2.2) L 08/13/21 05:15 Triglycerides 188 mg/dL (-149) H 08/12/21 06:14 Cholesterol 132 mg/dL (-199) 08/12/21 06:14 LDL Cholesterol Direct 43 mg/dL (-129) 08/10/21 04:30 LDL Cholesterol, Calc 85 mg/dL (-129) 08/12/21 06:14 VLDL Cholesterol 38 mg/dL 08/12/21 06:14 HDL Cholesterol 9 mg/dL (60-) L 08/12/21 06:14 LDL/HDL Ratio 9.4 (<3.6) 08/12/21 06:14 dLDL/HDL Ratio 4.8 (<3.6) 08/10/21 04:30 Cholesterol/HDL Ratio 14.7 (<5.0) 08/12/21 06:14 Lipase 143 U/L (22-51) H 08/12/21 06:14 Vitamin B12 606 pg/mL (180-914) 08/13/21 05:15 Folate 8.41 ng/mL (5.90 - >24.8) 08/13/21 05:15 Urine Color DARK YELLOW 08/08/21 18:47 Urine Clarity CLEAR (CLEAR) 08/08/21 18:47 Urine pH 5.5 PH (5.0-7.5) 08/08/21 18:47 Ur Specific [place] >=1.030 (1.002-1.030) H 08/08/21 18:47 Urine Protein TRACE mg/dL (NEGATIVE) 08/08/21 18:47 Urine Glucose (UA) NEGATIVE mg/dL (NEGATIVE) 08/08/21 18:47 Urine Ketones NEGATIVE mg/dL (NEGATIVE) 08/08/21 18:47 Urine Occult Blood NEGATIVE (NEGATIVE) 08/08/21 18:47 Urine Nitrite NEGATIVE (NEGATIVE) 08/08/21 18:47 Urine Bilirubin MODERATE (NEGATIVE) H 08/08/21 18:47 Urine Urobilinogen 1 (NORMAL) E.U./dL (NORMAL) 08/08/21 18:47 Ur Leukocyte Esterase NEGATIVE (NEGATIVE) 08/08/21 18:47 Ur Microscopic Review NOT INDICATED 08/08/21 18:47 Urine Culture Comments NOT INDICATED 08/08/21 18:47 Nasal Adenovirus (PCR) NOT DETECTED 08/08/21 22:54 Nasal B. parapertussis DNA (PCR) NOT DETECTED 08/08/21 22:54 Nasal Coronavir 229E PCR NOT DETECTED 08/08/21 22:54 Nasal Coronavir HKU1 PCR NOT DETECTED 08/08/21 22:54 Nasal Coronavir NL63 PCR NOT DETECTED 08/08/21 22:54 Nasal Coronavir OC43 PCR NOT DETECTED 08/08/21 22:54 Nasal Enterovir/Rhinovir PCR NOT DETECTED 08/08/21 22:54 Nasal Influenza B PCR NOT DETECTED 08/08/21 22:54 Nasal Influenza A PCR NOT DETECTED 08/08/21 22:54 Nasal Parainfluen 1 PCR NOT DETECTED 08/08/21 22:54 Nasal Parainfluen 2 PCR NOT DETECTED 08/08/21 22:54 Nasal Parainfluen 3 PCR NOT DETECTED 08/08/21 22:54 Nasal Parainfluen 4 PCR NOT DETECTED 08/08/21 22:54 Nasal RSV (PCR) NOT DETECTED 08/08/21 22:54 Nasal Screen MRSA (PCR) NEGATIVE (NEGATIVE) 08/08/21 23:30 Nasal B.pertussis DNA PCR NOT DETECTED 08/08/21 22:54 Nasal C.pneumoniae (PCR) NOT DETECTED 08/08/21 22:54 Bladimir Human Metapneumo PCR NOT DETECTED 08/08/21 22:54 Nasal M.pneumoniae (PCR) NOT DETECTED 08/08/21 22:54 Nasal SARS-CoV-2 (PCR) NOT DETECTED 08/08/21 22:54 Ethyl Alcohol 138.7 mg/dL 08/08/21 18:36
[2021-08-13] MEDS ORDERED: oxyCODONE 5 MG TABLET PO PRN (19:25)
[2021-08-14] MEDS: SODIUM CHLORIDE FLUSH 0.9% 10 ML SYRINGE IVP SCH ×4 (00:54→23:48)
[2021-08-14] MEDS: HYDROmorphone 1 MG/ML CARPUJECT IVP PRN (04:03)
[2021-08-14 06:30] LABS: ALBUMIN 2.9 g/dL (3.2-5.5); ALBUMIN/GLOBULIN RATIO 0.9 (1.0-2.2); BILIRUBIN,TOTAL 1.7 mg/dL (0.2-1.0); CALCIUM 8.4 mg/dL (8.5-10.3); CREATININE 0.7 mg/dL (0.6-1.2); MAGNESIUM 2.1 mg/dL (1.7-2.8); POTASSIUM 3.1 mmol/L (3.5-5.0); TOTAL PROTEIN 6.1 g/dL (6.7-8.2)
[2021-08-14 07:20] LABS: BASOPHILS # (AUTO) 0.1 10^3/uL (0.0-0.1); BASOPHILS % (AUTO) 0.5 %; EOSINOPHILS # (AUTO) 0.2 10^3/uL (0.0-0.7); HCT - HEMATOCRIT 33.3 % (42.0-52.0); HGB - HEMOGLOBIN 11.4 g/dL (14.0-18.0); LYMPHOCYTES # (AUTO) 1.9 10^3/uL (1.5-3.5); LYMPHOCYTES % (AUTO) 12.5 %; MEAN CORPUSCULAR HEMOGLOBIN 33.3 pg (27.0-31.0); MEAN CORPUSCULAR HGB CONC 34.2 g/dL (32.0-36.0); MEAN CORPUSCULAR VOLUME 97.4 fL (80.0-94.0); MEAN PLATELET VOLUME 10.1 fL (7.4-11.4); MONOCYTES # (AUTO) 4.4 10^3/uL (0.0-1.0); MONOCYTES % (AUTO) 28.4 %; NEUTROPHILS # (AUTO) 7.2 10^3/uL (1.5-6.6); NEUTROPHILS % (AUTO) 46.6 %; NUCLEATED RED BLOOD CELLS AUTO 0.6 /100WBC; PLT - PLATELET COUNT 246 10^3/uL (130-450); RED BLOOD COUNT 3.42 10^6/uL (4.70-6.10); WHITE BLOOD COUNT 15.4 x10^3/uL (4.8-10.8)
[2021-08-14 07:53] LABS: PLATELET ESTIMATE, MANUAL NORMAL (130-450,000) (NORMAL); PLATELET MORPHOLOGY NORMAL APPEARANCE (NORMAL); RBC MORPHOLOGY (MULTIPLE) NORMAL APPEARANCE (NORMAL); SLIDE REVIEW? Indicated
[2021-08-14] MEDS: metroNIDAZOLE 500 MG/100 ML 500 MG/100 ML BAG IV SCH ×3 (08:09→23:48)
[2021-08-14] MEDS: CEFEPIME 2 GM in SODIUM CHLORIDE 0.9% MINIBAG 100 ML IV SCH ×2 (09:25→21:10)
[2021-08-14] MEDS: NICOTINE 7 MG PATCH TOP SCH (09:26)
[2021-08-14] MEDS ORDERED: SODIUM CHLORIDE 0.9% 1,000 ML IV SCH (10:00)
[2021-08-14] MEDS: THIAMINE INJ 100 MG in SODIUM CHLORIDE 0.9% 50 ML IV SCH (10:28)
[2021-08-14] MEDS: POTASSIUM CHLOR 10 MEQ/100 ML 10 MEQ/100 ML BAG IV SCH ×3 (15:37→17:07)
[2021-08-14] MEDS ORDERED: metroNIDAZOLE 500 MG/100 ML 500 MG/100 ML BAG ONE (16:07)
[2021-08-14] MEDS ORDERED: VENLAFAXINE ER 75 MG CAPSULE PO SCH (19:00)
--- NOTE | 2021-08-14 19:21 | PROVIDER PROGRESS NOTE ---
Assessment/Plan - Problem List (1) Pancreatitis Qualifiers: Chronicity: acute Pancreatitis type: alcohol induced Acute pancreatitis complication: unspecified Qualified Code(s): K85.20 - Alcohol induced acute pancreatitis without necrosis or infection Assessment/Plan: His lipase is improving every day. His nausea and vomiting were improving every day. His abdominal pain is significantly better since admission. He was ordered to get Reglan for his nausea, or prn Compazine or Zofran. Pain meds are iv or po prn narcotics, Tylenol was stopped due to liver disease. Will advance the diet from pured diet to soft diet for dinner. If he tolerates this he may be ready for [facility] soon (2) Necrosis of pancreas Assessment/Plan: This was seen at admission, then CT repeated when White blood count worsened several days ago and N/V worsened. The same necrosis was seen. Continue with empiric antibiotics. (3) Anxiety Assessment/Plan: Today he revealed that he has anxiety, panic attacks, insomnia. I suspect he was (heavily) drinking alcohol to manage this. I discussed to start an SSRI may be helpful, he would feel better in several days or weeks, not right away. He would need PCP follow-up and for refills. He agreed. (4) Hypertriglyceridemia Assessment/Plan: He needed insulin drip and was in the ICU. His triglycerides were so high, they were not measurable. Will consider meds for high triglycerides such as Lopid, or if he changes his poor diet, he may not need meds for TG We requested nutrition consult to review his poor dietary habits and give advice. He admitted to me that he only ate candy and drank alcohol all day, and only had 1 substantial meal per day with protein (5) Alcohol abuse Assessment/Plan: He was switched back to IV thiamine when the ileus developed. Today will resume his thiamine p.o. He was again seen by social work to offer him resources yesterday regarding alcohol abuse and he declined these again (6) Ascites Assessment/Plan: This ws not presnt on admission CT abdomen but on repeat CT scan of the abdomen. It was likely from aggressive iv fluids given, he received several iv Lasix doses. We will monitor (7) Pleural effusion Assessment/Plan: This is likely related to low albumin and aggressive IV crystalloid infusions while he was on insulin drip. He got intermittent IV albumin plus IV Lasix. His dyspnea is better today. Will monitor (8) Hyponatremia Assessment/Plan: Improving daily slowly We decreased his iv NS to TKO Follow BMP daily (9) Abnormal EKG Assessment/Plan: Echo showed normal LVEF (10) Bicuspid aortic valve Assessment/Plan: This was found on Echo this admission and is a new Dx for this patient. We need to let him know the Dx to inform family, since this Dx is genetic and family members should be screened by Echo (11) S/P splenectomy Assessment/Plan: As seen on CT abd, the details are not known. (12) Ileus Assessment/Plan: Resolved (13) Alcohol withdrawal Assessment/Plan: Resolved, he is off scheduled Librium, CIWA protocol continues prn. - Current Meds Current Meds: Current Medications Generic Name Dose Route Start Last Admin Trade Name Freq PRN Reason Stop Dose Admin Hydromorphone HCl 1 mg 08/09/21 07:17 08/14/21 04:03 Hydromorphone 1 Mg/Ml Carpuject IVP 1 mg Q2H PRN Administration Pain 8 to 10 Cefepime HCl 2 gm/ Sodium 100 mls @ 200 mls/hr 08/09/21 09:00 08/14/21 10:10 Chloride IV Infused BID HANSEL Infusion Metronidazole 500 mg in 100 mls @ 100 mls/hr 08/09/21 08:00 08/14/21 17:15 Flagyl 500 Mg/100 Ml IV Infused Q8H HANSEL Infusion Thiamine HCl 100 mg/ Sodium 51 mls @ 100 mls/hr 08/12/21 11:00 08/14/21 11:00 Chloride IV 08/14/21 23:59 Infused DAILY HANSEL Infusion Lorazepam 1 mg 08/08/21 21:25 08/13/21 14:22 Lorazepam 2 Mg/Ml Vial IVP 1 mg Q30M PRN Administration CIWA >8 Protocol Nicotine 1 patch 08/11/21 09:00 08/14/21 09:26 Nicotine 7 Mg Patch TOP 1 patch DAILY HANSEL Administration Ondansetron HCl 4 mg 08/08/21 21:15 08/13/21 15:32 Ondansetron 4 Mg/2 Ml Vial IVP 4 mg Q6HR PRN Administration Nausea / Vomiting Oxycodone HCl 5 mg 08/13/21 19:25 08/13/21 20:53 Oxycodone 5 Mg Tablet PO 5 mg Q4HR PRN Administration PAIN Sodium Chloride 10 ml 08/08/21 21:15 08/13/21 13:00 Sodium Chloride Flush 0.9% 10 Ml Syringe IVP 10 ml PRN PRN Administration NEEDED PER PROVIDER ORDERS Sodium Chloride 10 ml 08/09/21 01:00 08/14/21 09:26 Sodium Chloride Flush 0.9% 10 Ml Syringe IVP Not Given 0100,0900,1700 HANSEL - Lab Result Fish Bone Diagrams: 08/14/21 07:14 08/14/21 05:45 - Additional Planning My Orders: My Active Orders 08/14/21 10:00 Sodium Chloride 0.9% [Normal Saline 0.9%] 1,000 ml IV TKO 08/14/21 Dinner Soft (Low Fiber) Diet [DIET] 08/14/21 19:00 Venlafaxine ER [Effexor ER] 75 mg PO 1900 08/14/21 21:00 traZODone [Desyrel] 50 mg PO QPM 08/15/21 05:00 CMP [COMPREHENSIVE METABOLIC PANEL] [CHEM] DAILYLAB PHOSPHORUS [CHEM] DAILYLAB 08/15/21 09:00 Thiamine [Vitamin B-1] 100 mg PO DAILY Subjective - Subjective Patient Reports: Feeling Better, Other (Tolerated his pured breakfast and lunch. At 5 pm he complained of anxiety, described it happens daily, makes him panic, he hyperventilates.) Objective Vital Signs: Vital Signs - 24 hr 08/13/21 08/14/21 08/14/21 21:00 00:18 08:00 Temperature 37.1 C 37.2 C Heart Rate Heart Rate [ 92 97 Brachial] Respiratory 18 20 Rate Blood Pressure 142/85 H 144/82 H [Right Brachial artery] O2 Saturation 98 95 94 08/14/21 08/14/21 08/14/21 08:16 09:31 16:22 Temperature 36.6 C 36.6 C 36.8 C Heart Rate 80 Heart Rate [ 80 82 Brachial] Respiratory 20 20 18 Rate Blood Pressure 154/80 H 137/79 H [Right Brachial artery] O2 Saturation 92 92 96 Oxygen O2 Source Room air I&O (Last 24 Hrs): Intake and Output Totals x24h 08/12/21 08/13/21 08/14/21 23:59 23:59 23:59 Intake Total 3224.00 3043.000 1422.5 Output Total 750 2800 400 Balance 2474.00 662.449 0462.5 General: Alert, Oriented x3 HEENT: Mucous membr. moist/pink, Other (No eyelid swelling and fatigue appearance today) Neck: Supple, No JVD Neuro: Alert, Non Focal Respiratory: No respiratory distress Abdomen: Normal bowel sounds, Soft Extremities: No clubbing, No edema - Results Results: Laboratory Results WBC 15.4 x10^3/uL (4.8-10.8) H 08/14/21 07:14 RBC 3.42 10^6/uL (4.70-6.10) L 08/14/21 07:14 Hgb 11.4 g/dL (14.0-18.0) L 08/14/21 07:14 Hct 33.3 % (42.0-52.0) L 08/14/21 07:14 MCV 97.4 fL (80.0-94.0) H 08/14/21 07:14 MCH 33.3 pg (27.0-31.0) H 08/14/21 07:14 MCHC 34.2 g/dL (32.0-36.0) 08/14/21 07:14 RDW 14.0 % (12.0-15.0) 08/14/21 07:14 Plt Count 246 10^3/uL (130-450) 08/14/21 07:14 MPV 10.1 fL (7.4-11.4) 08/14/21 07:14 Neut # (Auto) 7.2 10^3/uL (1.5-6.6) H 08/14/21 07:14 Lymph # (Auto) 1.9 10^3/uL (1.5-3.5) 08/14/21 07:14 [place] # (Auto) 4.4 10^3/uL (0.0-1.0) H 08/14/21 07:14 Eos # (Auto) 0.2 10^3/uL (0.0-0.7) 08/14/21 07:14 Baso # (Auto) 0.1 10^3/uL (0.0-0.1) 08/14/21 07:14 Absolute Nucleated RBC 0.10 x10^3/uL 08/14/21 07:14 Total Counted 100 08/13/21 05:15 Band Neuts % (Manual) 18 % (0-10) H 08/13/21 05:15 Reactive Lymphs % (Man) 1 % 08/13/21 05:15 Abnorm Lymph % (Manual) 0 % 08/13/21 05:15 Nucleated RBC % 0.6 /100WBC 08/14/21 07:14 Neutrophils # (Manual) 10.6 10^3/uL (1.5-6.6) H 08/13/21 05:15 Lymphocytes # (Manual) 2.1 10^3/uL (1.5-3.5) 08/13/21 05:15 Monocytes # (Manual) 2.4 10^3/uL (0.0-1.0) H 08/13/21 05:15 Eosinophils # (Manual) 0.0 10^3/uL (0-0.7) 08/13/21 05:15 Basophils # (Manual) 0.0 10^3/uL (0-0.1) 08/13/21 05:15 Differential Comment MANUAL DIFFERENTIAL 08/13/21 05:15 Manual Slide Review Indicated 08/14/21 07:14 WBC Morphology (NORMAL) 08/14/21 07:14 Platelet Estimate NORMAL (130-450,000) (NORMAL) 08/14/21 07:14 Platelet Morphology NORMAL APPEARANCE (NORMAL) 08/14/21 07:14 RBC Morph Micro Appear NORMAL APPEARANCE (NORMAL) 08/14/21 07:14 VBG pH 7.373 (7.31-7.41) 08/13/21 05:15 Ionized Calcium 1.14 mmol/L (1.15-1.33) L 08/13/21 05:15 Sodium 133 mmol/L (135-145) L 08/14/21 05:45 Potassium 3.1 mmol/L (3.5-5.0) L 08/14/21 05:45 Chloride 97 mmol/L (101-111) L 08/14/21 05:45 Carbon Dioxide 27 mmol/L (21-32) 08/14/21 05:45 Anion Gap 9.0 (6-13) 08/14/21 05:45 BUN 5 mg/dL (6-20) L 08/14/21 05:45 Creatinine 0.7 mg/dL (0.6-1.2) 08/14/21 05:45 Estimated GFR (MDRD) 135 (>89) 08/14/21 05:45 Glucose 99 mg/dL (70-100) 08/14/21 05:45 POC Whole Bld Glucose 105 mg/dL (70 - 100) H 08/13/21 11:25 Estimat Average Glucose 100 mg/dL (70-100) 08/10/21 04:30 Hemoglobin A1c % 5.1 % (4.27-6.07) 08/10/21 04:30 Lactic Acid 2.5 mmol/L (0.5-2.2) H 08/09/21 07:26 Calcium 8.4 mg/dL (8.5-10.3) L 08/14/21 05:45 Phosphorus 2.9 mg/dL (2.5-4.6) 08/14/21 05:45 Magnesium 2.1 mg/dL (1.7-2.8) 08/14/21 05:45 Total Bilirubin 1.7 mg/dL (0.2-1.0) H 08/14/21 05:45 Direct Bilirubin 1.0 mg/dL (0.1-0.5) H 08/13/21 09:21 AST 23 IU/L (10-42) 08/14/21 05:45 ALT 28 IU/L (10-60) 08/14/21 05:45 Alkaline Phosphatase 57 IU/L (42-121) 08/14/21 05:45 Troponin I High Sens 9.9 ng/L (2.3-19.7) 08/09/21 10:29 Total Protein 6.1 g/dL (6.7-8.2) L 08/14/21 05:45 Albumin 2.9 g/dL (3.2-5.5) L 08/14/21 05:45 Globulin 3.2 g/dL (2.1-4.2) 08/14/21 05:45 Albumin/Globulin Ratio 0.9 (1.0-2.2) L 08/14/21 05:45 Triglycerides 188 mg/dL (-149) H 08/12/21 06:14 Cholesterol 132 mg/dL (-199) 08/12/21 06:14 LDL Cholesterol Direct 43 mg/dL (-129) 08/10/21 04:30 LDL Cholesterol, Calc 85 mg/dL (-129) 08/12/21 06:14 VLDL Cholesterol 38 mg/dL 08/12/21 06:14 HDL Cholesterol 9 mg/dL (60-) L 08/12/21 06:14 LDL/HDL Ratio 9.4 (<3.6) 08/12/21 06:14 dLDL/HDL Ratio 4.8 (<3.6) 08/10/21 04:30 Cholesterol/HDL Ratio 14.7 (<5.0) 08/12/21 06:14 Lipase 143 U/L (22-51) H 08/12/21 06:14 Vitamin B12 606 pg/mL (180-914) 08/13/21 05:15 Folate 8.41 ng/mL (5.90 - >24.8) 08/13/21 05:15 Urine Color DARK YELLOW 08/08/21 18:47 Urine Clarity CLEAR (CLEAR) 08/08/21 18:47 Urine pH 5.5 PH (5.0-7.5) 08/08/21 18:47 Ur Specific [place] >=1.030 (1.002-1.030) H 08/08/21 18:47 Urine Protein TRACE mg/dL (NEGATIVE) 08/08/21 18:47 Urine Glucose (UA) NEGATIVE mg/dL (NEGATIVE) 08/08/21 18:47 Urine Ketones NEGATIVE mg/dL (NEGATIVE) 08/08/21 18:47 Urine Occult Blood NEGATIVE (NEGATIVE) 08/08/21 18:47 Urine Nitrite NEGATIVE (NEGATIVE) 08/08/21 18:47 Urine Bilirubin MODERATE (NEGATIVE) H 08/08/21 18:47 Urine Urobilinogen 1 (NORMAL) E.U./dL (NORMAL) 08/08/21 18:47 Ur Leukocyte Esterase NEGATIVE (NEGATIVE) 08/08/21 18:47 Ur Microscopic Review NOT INDICATED 08/08/21 18:47 Urine Culture Comments NOT INDICATED 08/08/21 18:47 Nasal Adenovirus (PCR) NOT DETECTED 08/08/21 22:54 Nasal B. parapertussis DNA (PCR) NOT DETECTED 08/08/21 22:54 Nasal Coronavir 229E PCR NOT DETECTED 08/08/21 22:54 Nasal Coronavir HKU1 PCR NOT DETECTED 08/08/21 22:54 Nasal Coronavir NL63 PCR NOT DETECTED 08/08/21 22:54 Nasal Coronavir OC43 PCR NOT DETECTED 08/08/21 22:54 Nasal Enterovir/Rhinovir PCR NOT DETECTED 08/08/21 22:54 Nasal Influenza B PCR NOT DETECTED 08/08/21 22:54 Nasal Influenza A PCR NOT DETECTED 08/08/21 22:54 Nasal Parainfluen 1 PCR NOT DETECTED 08/08/21 22:54 Nasal Parainfluen 2 PCR NOT DETECTED 08/08/21 22:54 Nasal Parainfluen 3 PCR NOT DETECTED 08/08/21 22:54 Nasal Parainfluen 4 PCR NOT DETECTED 08/08/21 22:54 Nasal RSV (PCR) NOT DETECTED 08/08/21 22:54 Nasal Screen MRSA (PCR) NEGATIVE (NEGATIVE) 08/08/21 23:30 Nasal B.pertussis DNA PCR NOT DETECTED 08/08/21 22:54 Nasal C.pneumoniae (PCR) NOT DETECTED 08/08/21 22:54 Bladimir Human Metapneumo PCR NOT DETECTED 08/08/21 22:54 Nasal M.pneumoniae (PCR) NOT DETECTED 08/08/21 22:54 Nasal SARS-CoV-2 (PCR) NOT DETECTED 08/08/21 22:54 Ethyl Alcohol 138.7 mg/dL 08/08/21 18:36
[2021-08-14] MEDS ORDERED: traZODone 50 MG TABLET PO SCH (21:00)
[2021-08-15] MEDS: HYDROmorphone 1 MG/ML CARPUJECT IVP PRN ×2 (01:22→05:29)
[2021-08-15 07:10] LABS: BASOPHILS % (AUTO) 0.5 %; HCT - HEMATOCRIT 33.1 % (42.0-52.0); HGB - HEMOGLOBIN 11.4 g/dL (14.0-18.0); LYMPHOCYTES % (AUTO) 14.1 %; MEAN CORPUSCULAR HEMOGLOBIN 33.5 pg (27.0-31.0); MEAN CORPUSCULAR HGB CONC 34.4 g/dL (32.0-36.0); MEAN CORPUSCULAR VOLUME 97.4 fL (80.0-94.0); MEAN PLATELET VOLUME 10.3 fL (7.4-11.4); MONOCYTES % (AUTO) 20.5 %; NEUTROPHILS % (AUTO) 51.7 %; PLT - PLATELET COUNT 367 10^3/uL (130-450); RED CELL DISTRIBUTION WIDTH 13.8 % (12.0-15.0); WHITE BLOOD COUNT 15.3 x10^3/uL (4.8-10.8)
[2021-08-15 07:24] LABS: ALBUMIN 3.1 g/dL (3.2-5.5); ALBUMIN/GLOBULIN RATIO 0.9 (1.0-2.2); BILIRUBIN,TOTAL 1.3 mg/dL (0.2-1.0); CALCIUM 8.9 mg/dL (8.5-10.3); CREATININE 0.7 mg/dL (0.6-1.2); PHOSPHORUS 3.6 mg/dL (2.5-4.6); POTASSIUM 3.7 mmol/L (3.5-5.0); TOTAL PROTEIN 6.4 g/dL (6.7-8.2)
[2021-08-15 07:48] LABS: ABNORMAL LYMPHS % (MANUAL) 0 %
--- NOTE | 2021-08-15 08:40 | Discharge Plan ---
Discharge Plan Problem Reviewed?: Yes Disposition: Home, Self Care Condition: Fair Prescriptions: Ciprofloxacin [Cipro] 500 mg PO Q12H #20 tablet traZODone [Desyrel] 50 mg PO QPM #30 tablet Venlafaxine ER [Effexor ER] 75 mg PO 1900 #30 cap metroNIDAZOLE [Flagyl] 500 mg PO TID 5 Days #15 tablet Diet: Regular (but low fat, small meals) Shower Restrictions: No Driving Restrictions: No Instruction Topics: Cooking Tips Low Fat, Pancreatitis Acute Dc, Pancreatitis Health Concerns: You came to the emergency room with pain in your upper abdomen for several days that was getting worse. You have a history of alcohol abuse with previous pancreatitis. You have been sick for several weeks now. We found you to have acute pancreatitis. Plan of Treatment: 1. Treatment for pancreatitis is mainly supportive unless the pancreas is eating itself. Your pancreas had changes of necrotizing infection. It means that the digestive enzymes were destroying your pancreas. Your white cell count is elevated and you were put on antibiotics as well as supportive care with IV antibiotics, antinausea medicines, and pain medicines. 2. The fact that your pancreas is necrotizing (it is being dissolved by its own digestive juices) is a very bad sign. You cannot drink again. If this gets severely infected the risk of dying is very, very high. 3. Eat frequent, small, low-fat meals. You cannot drink again. Take a vitamin because vitamins have a lot of B vitamins that are required in people with alcohol abuse. 4. 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 For protection against these organisms, the vaccines for strep pneumonia, Haemophilus influenza, and quadrivalent meningococcal conjugate series or meningococcal serogroup B vaccine series is recommended. You should also get the annual flu vaccine. 5. [place]. [place] need to be seen in follow-up in the next 1 to 2 weeks because of your pancreatitis and need a blood work panel called a CBC, CMP, amylase and C- reactive protein. That would also be a good time to start your vaccines. Care Goals: To stay completely off alcohol, regain balance in your life with regular employment, and a regular diet. Assessment: patient understands care goals and states he already sees an AA group via zoom and will follow through with plans No Smoking: If you smoke, Please STOP! Call for help.
[2021-08-15] MEDS: SODIUM CHLORIDE FLUSH 0.9% 10 ML SYRINGE IVP SCH (08:46)
[2021-08-15] MEDS: metroNIDAZOLE 500 MG/100 ML 500 MG/100 ML BAG IV SCH (08:46)
[2021-08-15 08:59] LABS: BAND NEUTROPHILS % (MANUAL) 2 %; EOSINOPHILS # (MANUAL) 0.2 10^3/uL (0-0.7); LYMPHOCYTES % (MANUAL) 13 %; METAMYELOCYTES % (MANUAL) 4 %; MONOCYTES # (MANUAL) 3.1 10^3/uL (0.0-1.0); NEUTROPHILS # (MANUAL) 9.5 10^3/uL (1.5-6.6)
[2021-08-15 09:00] LABS: DIFFERENTIAL COMMENT MANUAL DIFFERENTIAL; PLATELET ESTIMATE, MANUAL NORMAL (130-450,000) (NORMAL); PLATELET MORPHOLOGY NORMAL APPEARANCE (NORMAL)
[2021-08-15] MEDS ORDERED: THIAMINE 100 MG TABLET PO SCH (09:00)
[2021-08-15] MEDS: NICOTINE 7 MG PATCH TOP SCH (09:23)
[2021-08-15] MEDS: CEFEPIME 2 GM in SODIUM CHLORIDE 0.9% MINIBAG 100 ML IV SCH (10:04)
[2021-08-15 11:31] VITALS: BP 130/84
--- NOTE | 2021-08-15 12:06 | DISCHARGE SUMMARY ---
"Discharge Summary Admit Date: 08/08/21 Discharge Date: 08/15/21 Discharging Provider: Alecia Lloyd MD Primary Care Provider: Needs to establish with a PCP Code Status: Attempt Resuscitation Condition at Discharge: Fair Discharge Disposition: 01 Home, Self Care - DIAGNOSES Discharge Diagnoses with Status of Each Condition: 1. Pancreatitis, alcoholic with complication 2. Necrosis of pancreas 3. Generalized anxiety disorder with panic attacks 4. Hypertriglyceridemia 5. Chronic alcohol abuse with alcohol withdrawal 6. Ascites 7. Pleural effusion 8. Hyponatremia 9. Abnormal EKG 10. Bicuspid aortic valve, 11. History of splenectomy 12. Ileus - HPI History of Present Illness: 26-year-old male who presented to the ED with complaint of epigastric and left upper quadrant abdominal pain which has been going on for a couple days. However the abdominal pain was significantly worse around 3 AM today and has been clean and intensity between 8-9 on a 10 scale through out the day. He has also been nauseous and vomiting. He last ate the previous day. As a result of his symptoms he came to the ED for evaluation. Currently he rates his pain 6 out of 10. He has previous history of pancreatitis last year. He has history of alcohol abuse and used to drinking 1-2 fifths bottles of vodka daily. However currently he drinks several beers and a few shots. He last drank this afternoon. He has been having daily pain for months now and daily morning emesis, no blood in emesis. Denies blood in stool or dark,tarry stool. In the ED included lipase level which was 792. He also had a lipid panel done w [facility] showed a triglyceride greater than 2000. He was presented for admission for further management. At bedside he was resting comfortably. He denied chest pain, dyspnea, fever. The rest of his history is unremarkable. - CONSULTS | PROCEDURES Procedures: 1. Abdomen pelvis CT with acute pancreatitis, diminished postcontrast enhancement in the tail of the pancreas concerning for pancreatic necrosis. Status post splenectomy. Colonic diverticulosis without evidence of diverticulitis. 2. Repeat abdominal CT done 3 days later showed stable pancreatic inflammatory changes and hypoenhancement in the pancreatic tail consistent with pancreatic necrosis. Worsening abdominal ascites, moderate bilateral bibasilar pleural effusions that are new. Diffuse small bowel dilation reflecting reactive ileus. 3. Blood cultures negative after 5 days. 4. Echocardiogram done for abnormal EKG shows wall thickness of left ventricle normal. Ejection fraction 60 to 65% without wall motion abnormalities. Right ventricle, both atria are normal in size. Aortic valve is bicuspid. The other valves look normal. - HOSPITAL COURSE Hospital Course: The patient was placed on aggressive supportive care with pain medicines, IV fluids for resuscitation, and antibiotics were started due to changes of necrosis on CT. He did not have a fever during his stay. He was normotensive during his stay. And white cell count remained elevated at 15,000. He continues to be 15.3 thousand at discharge. As his pain diminished, he was started on clear liquids, and then full liquids and then a low-fat diet. He has been tolerating that without pain, emesis and is anxious to go home to a new job that is just started. He states that there is a first time he has been sober for years and really likes being clearheaded in the morning. He hopes to stay sober. I explained to him that drinking is not an option for him anymore. Pancreatitis can be lethal and it appears that he has had pancreatitis for several weeks prior to admission. He will be discharged on a few more days of oral antibiotics. He has received extensive counseling for nutrition services about what to eat and he shows me the diet that he will be following, including pictures. Hyponatremia of 127 improved and he was 136 on the day of discharge. He did have mild alcohol withdrawal treated with benzodiazepines and did well. Echocardiogram shows a bicuspid valve and the hospitalist that day spent quite a bit of time educating him and explaining to him what he needed to do. He developed ascites and pleural effusion with the aggressive fluid resuscitation and low albumin. Hopefully that will resolve over the next few days if not weeks on its own. At discharge temperature is 36.5. Heart rate 90. Blood pressure 130/84. Respirations 20. 97% on room air. He is 6 foot 3 inches tall and weighs 87.5 kg. He is a well-appearing, well-nourished white male with extensive body art/tattoos. Cheerful, cooperative. No tremulousness, diaphoresis. Able to get out of bed and walk to the bathroom and back without assistance, ataxia, or weakness. Lungs are clear. Regular rate and rhythm without tachycardia. Abdomen tender in the epigastrium left upper quadrant. I did addictions counselor assistant him on vaccinations required in a splenectomy patient and gave him a handout about what vaccines are required. Normal bowel sounds. No rebound. Last bowel movement was this morning. Extremities are without edema and he is Homans negative. Greater than 30 minutes was spent coordinating discharge, counseling the patient, and I did give him a note that he could return to work without any restrictions at his request. He currently does AA via Zoom with his old group [place] through with AA there. He also needs to establish himself with a new primary care provider [place]. Social work is given him a list. [employer]ch [place] planning is also helping him. - ALLERGIES Allergies/Adverse Reactions: Allergies Allergy/AdvReac Type Severity Reaction Status Date / Time No Known Drug Allergies Allergy Verified 08/08/21 18:28 - MEDICATIONS Home Medications: Ambulatory Orders Medication Instructions Recorded Confirmed Ciprofloxacin [Cipro] 500 mg PO Q12H #20 tablet 08/15/21 Venlafaxine ER [Effexor ER] 75 mg PO 1900 #30 cap 08/15/21 metroNIDAZOLE [Flagyl] 500 mg PO TID 5 Days #15 tablet 08/15/21 traZODone [Desyrel] 50 mg PO QPM #30 tablet 08/15/21 - LABS Result Diagrams: 08/15/21 06:36 08/15/21 06:36"
== END 2021-08-15 12:27 | disposition home or self-care (01) | DRG 439 ==
LOC: ED 18:22 → OBSVTOIN 21:15 → MS2 21:15 → ICU 22:29 → MS2 08-12 16:05 → ICU 08-13 17:17 → MS2 08-13 17:22
PROVIDERS: ADMIT Internal Medicine; ATTEND Specialist
DX: K85.21 Alcohol induced acute pancreatitis with uninfected necrosis (principal); R18.8 Other ascites; J90 Pleural effusion, not elsewhere classified; E87.1 Hypo-osmolality and hyponatremia; Q23.1 Congenital insufficiency of aortic valve; K56.7 Ileus, unspecified; F10.239 Alcohol dependence with withdrawal, unspecified; F41.1 Generalized anxiety disorder; F41.0 Panic disorder [episodic paroxysmal anxiety]; E78.1 Pure hyperglyceridemia; R94.31 Abnormal electrocardiogram [ECG] [EKG]; D72.829 Elevated white blood cell count, unspecified; E88.09 Other disorders of plasma-protein metabolism, not elsewhere classified; G47.00 Insomnia, unspecified; E78.00 Pure hypercholesterolemia, unspecified; Z20.822 Contact with and (suspected) exposure to COVID-19; Z71.3 Dietary counseling and surveillance; Z72.0 Tobacco use; Z74.01 Bed confinement status; Z82.49 Family history of ischemic heart disease and other diseases of the circulatory system; Z83.49 Family history of other endocrine, nutritional and metabolic diseases; Z90.81 Acquired absence of spleen
CPT/HCPCS: 0202U; 36415; 74177; 80048; 80053; 80061; 80076; 80320; 81003; 82248; 82330; 82607; 82746; 83036; 83605; 83690; 83721; 83735; 84100; 84484; 85025; 87040; 87150; 93005; 93306; 96365; 96375; 99283; 99285; A9270; J1170; J1815; J2060; J2765; J3411; J7040; P9047; Q9967; 81001; 85610; 85730; 87086

== ENCOUNTER 2022-05-24 13:21 | Emergency (ER) | payer OTHER, MEDICAID ==
[2022-05-24] MEDS ORDERED: LIDOCAINE 1%-EPI 1:100000 20 ML MDV SUBQ STA (14:04)
[2022-05-24] MEDS ORDERED: TETANUS/DIPHTHERIA/PERTUSSIS 0.5 ML SYRINGE IM ONE (15:15)
--- NOTE | 2022-05-24 15:19 | ED Physician Documentation ---
PD HPI UPPER EXT INJURY - Stated complaint Stated Complaint: LT HAND LAC - Chief complaint Chief Complaint: Laceration - History obtained from History obtained from: Patient, Family - History of Present Illness Location: Left, Hand Type of injury: Laceration Where injury occurred: Work Timing - onset: Today Timing - duration: Minutes Timing - details: Abrupt onset, Still present Improved by: Rest, Immobilization Worsened by: Moving, Palpating Associated symptoms: No: Weakness, Numbness, Tingling, Swelling, Discolored Contributing factors: No: Anticoagulated Similar symptoms before: Diagnosis (lacaeration) Recently seen: Not recently seen - Additonal information Additional information: 26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 He is not up-to-date on his tetanus. He has no foreign material in the wound and no significant pain associated with this. Review of Systems Constitutional: denies: Fever Respiratory: denies: Cough GI: denies: Vomiting : denies: Dysuria, Frequency PD PAST MEDICAL HISTORY - Past Medical History Past Medical History: Yes Cardiovascular: High cholesterol Respiratory: None Neuro: None Endocrine/Autoimmune: None GI: Pancreatitis : None Psych: Panic attacks Musculoskeletal: None Derm: None - Past Surgical History Past Surgical History: No General: Splenectomy - Present Medications Home Medications: Ambulatory Orders Medication Instructions Recorded Confirmed No Known Home Medications 05/24/22 05/24/22 - Allergies Allergies/Adverse Reactions: Allergies Allergy/AdvReac Type Severity Reaction Status Date / Time No Known Drug Allergies Allergy Verified 05/24/22 13:42 - Social History Does the pt smoke?: No Smoking Status: Never smoker Does the pt drink ETOH?: Yes Does the pt have substance abuse?: Yes - Immunizations Immunizations are current?: No - POLST Patient has POLST: No POLST Status: Full Code PD ED PE NORMAL - Vitals Vital signs reviewed: Yes (normal ) - General General: Alert and oriented X 3, No acute distress, Well developed/nourished - HEENT HEENT: Atraumatic, PERRL - Respiratory Respiratory: No respiratory distress - Derm Derm: Normal color, Warm and dry, No rash - Extremities Extremities: No deformity, No edema, Other (3.5cm clean laceration to the palmar surface of the left hand proximal raidal. ) - Neuro Neuro: Alert and oriented X 3, pst manager 2-12 intact, No motor deficit, No sensory deficit, Normal speech Eye Opening: Spontaneous Motor: Obeys Commands Verbal: Oriented GCS Score: 15 - Psych Psych: Normal mood, Normal affect Results - Vitals Vitals: Vital Signs - 24 hr 05/24/22 13:39 Temperature 36.7 C Heart Rate 84 Respiratory 16 Rate Blood Pressure 133/80 H O2 Saturation 98 Oxygen O2 Source Room air Procedures - Laceration (location) left hand Length in cm: 3.5 Wound type: Linear, Into subcut fat, Clean Neurovascular status: Sensory intact, Motor intact, Vascular intact Anesthesia: Lidocaine 1% with epi Wound preparation: Hibiclens, Irrigated copiously NS, Wound explored, To the base Skin layer closure: Nylon, Interrupted, Size #-0 - enter number (4-0), Sutures - enter # (8) Other: Patient tolerated well, No complications, Neurovascular intact, Dressing applied, Tetanus booster given PD MEDICAL DECISION MAKING - ED course Complexity details: reviewed old records, considered differential, d/w patient, d/w family ED course: 26-year-old male with a 3 and half centimeter laceration to the palm of the left hand has sutures placed and a tetanus booster administered. He has a clean laceration and no complications to suturing. Departure - Departure Disposition: 01 Home, Self Care Clinical Impression: Hand laceration Qualifiers: Encounter type: initial encounter Foreign body presence: without foreign body Laterality: left Qualified Code(s): S61.412A - Laceration without foreign body of left hand, initial encounter Condition: Stable Instructions: ED Laceration Hand Follow-Up: Cici Toro PA-C [Provider Admit Priv/Credential] - Comments: Sutures should be removed in 10 to 14 days.
[2022-05-24 15:41] VITALS: BP 118/58
== END 2022-05-24 15:38 | disposition home or self-care (01) ==
LOC: ED 13:21
DX: S61.412A Laceration without foreign body of left hand, initial encounter (principal); W26.8XXA Contact with other sharp object(s), not elsewhere classified, initial encounter; Y93.H3 Activity, building and construction; Y99.0 Civilian activity done for income or pay
CPT/HCPCS: 1040M; 12002; 90471; 90715; 99283